=== PATIENT | male | born 1935 | race Caucasian/White ===

== ENCOUNTER 2018-09-01 21:28 | Inpatient (IN) | payer MEDICARE ==
--- NOTE | 2018-09-01 21:47 | ED Physician Chart ---
ED Chief Complaint/HPI - Patient Information Date Seen:: 09/01/18 Time Seen:: 21:46 Chief Complaint:: Dehydration History of Present Illness:: 83 yo male was brought from SNF to ER for evaluation of dehydration, failure to thrive and refusal of medication for 2 days. His labs on 08/24/18 showed WBC 8.9 , BUN 13, Cr 1.3. Pt was put on 5150 for gravely disabled on 08/29/18. On arrival at ER, pt refused evaluation and treatment. He was screaming, yelling and attacking nursing staff. Allergies:: Allergies Allergy/AdvReac Type Severity Reaction Status Date / Time No Known Allergies Allergy Verified 09/01/18 21:38 ED Review of Systems - Review of Systems General/Constitutional: Fever, Chills, Weakness, Other (Agitation) Skin: No rash Head: No headache Eyes: No pain ENT: No earache Neck: No neck pain Cardio Vascular: No chest pain Pulmonary: No SOB GI: No nausea, No vomiting Musculoskeletal: No bone or joint pain Psychiatric: Prior psych history Neurological: No focal symptoms ED Past Medical History - Past Medical History Past Medical History: HTN, DM, CAD, Dyslipidemia (Hyperlipidemia), Arthritis, Other (BPH) Social History: Non Smoker, No Alcohol, No Drug Use Psychiatricy History: Other (Psychosis, paranoid) Family Medical History - Family Member Mother History Unknown: Yes ED Physical Exam - Physical Examination General/Constitutional: Awake, Alert Head: Atraumatic Eyes: PERRL Skin: No skin lesions ENMT: Nasal exam nl Neck: No nuchal rigidity Respiratory: No Wheeze/Rhonchi/Rales Cardio Vascular: RRR, No murmur, gallop, rubs, NL S1 S2 GI: No tenderness/rebounding/guarding Extremities: normal strength in all extremities Neuro/Psych: No focal deficits ED Labs/Radiology/EKG Results - Lab Results Results: Laboratory Last Values WBC 10.0 Th/cmm (4.8-10.8) 09/01/18 22:45 RBC 5.54 Mil/cmm (3.80-5.80) 09/01/18 22:45 Hgb 15.9 gm/dL (12-16) 09/01/18 22:45 Hct 48.0 % (41.0-60) 09/01/18 22:45 MCV 86.6 fl (80-99) 09/01/18 22:45 MCH 28.7 pg (27.0-31.0) 09/01/18 22:45 MCHC Differential 33.1 pg (28.0-36.0) 09/01/18 22:45 RDW 16.8 % (11.5-20.0) 09/01/18 22:45 Plt Count 207 Th/cmm (150-400) 09/01/18 22:45 MPV 11.0 fl 09/01/18 22:45 Add Manual Diff 09/01/18 22:45 Neutrophils % 61.2 % (40.0-80.0) 09/01/18 22:45 Lymphocytes % 27.6 % (20.0-50.0) 09/01/18 22:45 Monocytes % 9.7 % (2.0-10.0) 09/01/18 22:45 Eosinophils % 1.0 % (0.0-5.0) 09/01/18 22:45 Basophils % 0.5 % (0.0-2.0) 09/01/18 22:45 PT 10.6 SECONDS (9.5-11.5) 09/01/18 22:45 INR 1.02 (0.5-1.4) 09/01/18 22:45 PTT (Actin FS) 31.9 SECONDS (26.0-38.0) 09/01/18 22:45 Sodium 135 mEq/L (136-145) L 09/02/18 06:00 Potassium 3.0 mEq/L (3.5-5.1) L 09/02/18 06:00 Chloride 102 mEq/L (98-107) 09/02/18 06:00 Carbon Dioxide 16.9 mEq/L (21.0-31.0) L 09/02/18 06:00 Anion Gap 19.1 (7.0-16.0) H 09/02/18 06:00 BUN 12 mg/dL (7-25) 09/02/18 06:00 Creatinine 1.0 mg/dL (0.7-1.3) 09/02/18 06:00 Est GFR ( Amer) TNP 09/02/18 06:00 Est GFR (Non-Af Amer) TNP 09/02/18 06:00 BUN/Creatinine Ratio 12.0 09/02/18 06:00 Glucose 128 mg/dL (70-105) H 09/02/18 06:00 POC Glucose 108 MG/DL (70 - 105) H 09/02/18 06:54 Calcium 9.1 mg/dL (8.6-10.3) 09/02/18 06:00 Magnesium 1.8 mg/dL (1.9-2.7) L 09/02/18 06:00 Total Bilirubin 0.7 mg/dL (0.3-1.0) 09/01/18 22:45 AST 12 U/L (13-39) L 09/01/18 22:45 ALT 25 U/L (7-52) 09/01/18 22:45 Alkaline Phosphatase 75 U/L (34-104) 09/01/18 22:45 Ammonia 35 umol/L (16-53) 09/02/18 06:00 Creatine Kinase 27 U/L (30-223) L 09/01/18 22:45 Troponin I 0.02 ng/mL (0.01-0.05) 09/01/18 22:45 B-Natriuretic Peptide 43.8 pg/mL (5.0-100.0) 09/01/18 22:45 Total Protein 7.2 gm/dL (6.0-8.3) 09/01/18 22:45 Albumin 3.4 gm/dL (4.2-5.5) L 09/01/18 22:45 Globulin 3.8 gm/dL 09/01/18 22:45 Albumin/Globulin Ratio 0.9 (1.0-1.8) L 09/01/18 22:45 Lipase 21 U/L (11-82) 09/01/18 22:45 TSH 4.40 uIU/ml (0.34-5.60) 09/02/18 06:00 - Radiology Results Results: CXR: no acute abnormalities - EKG Interpretations EKG Time:: 23:01 Rate & Rhythm: 66 bpm, sinus rhythm Thorofare: Normal axis Intervals: Short ME interval Comments:: Borderline EKG ED Assessment - Assessment General Assessment: Hypokalemia Mild hyponatremia Dehydration Hypertension DM II Psychosis Assessment/Comments:: Haldol 5 mg IM Ativan 1 mg IM Benadryl 50 mg IM CBC, CMP, Troponin, BNP, UA CXR, EKG NS 1L IV bolus D5 1/2 NS plus KCl 20 mEq IV ED Septic Shock - . Is Septic Shock (SBP<90, OR Lactate>4 mmol\L) present?: No ED Reassessment (Disposition) - Reassessment Reassessment Condition:: Improved - Patient Disposition Discharge/Transfer:: Acute Care w/in this hosp Admitting Medical Physician:: Juan David Goyal
[2018-09-01] MEDS ORDERED: Haloperidol Lactate 5 mg/mL 1mL Vial IM STA (21:48)
[2018-09-01] MEDS ORDERED: Haloperidol Lactate 5 mg/mL 1mL Vial ONE (21:53)
[2018-09-01] MEDS ORDERED: Sodium Chloride 0.9% 1,000 ML IV ONE (22:31)
[2018-09-01 23:14] LABS: INR 1.02 (0.5-1.4)
[2018-09-01 23:17] LABS: ALB/GLOB RATIO 0.9 (1.0-1.8); ALBUMIN 3.4 gm/dL (4.2-5.5); ALKALINE PHOSPHATASE 75 U/L (34-104); ANION GAP 23.9 (7.0-16.0); BILIRUBIN,TOTAL 0.7 mg/dL (0.3-1.0); BUN - UREA NITROGEN 14 mg/dL (7-25); CARBON DIOXIDE 15.9 mEq/L (21.0-31.0); CHLORIDE 97 mEq/L (98-107); CREATININE - SERUM 1.2 mg/dL (0.7-1.3); CREATININE KINASE 27 U/L (30-223); GLUCOSE 137 mg/dL (70-105); LIPASE 21 U/L (11-82); SGOT 12 U/L (13-39); SGPT/ALT 25 U/L (7-52); SODIUM SERUM 134 mEq/L (136-145); TOTAL PROTEIN,SERUM 7.2 gm/dL (6.0-8.3)
[2018-09-01 23:30] LABS: POTASSIUM SERUM 2.8 mEq/L (3.5-5.1)
[2018-09-01] MEDS ORDERED: KCL 20mEq/100mL Premix 20 MEQ/100 ML PIGGYBACK IV ONE (23:33)
[2018-09-01] MEDS ORDERED: 0.9% NS w/20 mEq KCL 1,000 ML IV ONE (23:34)
[2018-09-01] MEDS ORDERED: 0.45% NS w/20 mEq KCl 1,000 ML IV ONE ×2 (23:38→23:39)
[2018-09-01] MEDS ORDERED: Albuterol Nebulizer 2.5mg/3mL HHN PRN (23:44)
[2018-09-01] MEDS ORDERED: Maalox 30 mL Cup PO PRN (23:44)
[2018-09-01] MEDS ORDERED: guaiFENesin 200 MG/10 ML UDC PO PRN (23:44)
[2018-09-01] MEDS ORDERED: Ipratropium Neb 0.5 mg/2.5 mL UD HHN PRN (23:44)
[2018-09-01] MEDS ORDERED: Dextrose 50% 50 mL Abboject IVP PRN (23:46)
[2018-09-01] MEDS ORDERED: GLUCAGON HCl 1 MG KIT IM PRN (23:46)
[2018-09-02 01:08] VITALS: BP 164/83
[2018-09-02 01:54] LABS: HEMOGLOBIN 15.9 gm/dL (12-16); MEAN CELL VOLUME 86.6 fl (80-99); MEAN CORPUSCULAR HEMOGLOBIN 28.7 pg (27.0-31.0); MEAN CORPUSCULAR HGB CONC 33.1 pg (28.0-36.0); RED BLOOD COUNT 5.54 Mil/cmm (3.80-5.80)
[2018-09-02 01:55] LABS: % BASOPHILS 0.5 % (0.0-2.0); % LYMPHOCYTES 27.6 % (20.0-50.0); % MONOCYTES 9.7 % (2.0-10.0); % NEUTROPHILS 61.2 % (40.0-80.0); BASOPHILE ABSOLUTE 0.1 Th/cumm (0-0.2); EOSINOPHILE ABSOLUTE 0.1 Th/cmm (0.1-0.4); LYMPHOCYTE ABSOLUTE 2.8 Th/cmm (1.5-3.0); NEUTROPHILE ABSOLUTE 6.2 Th/cmm (1.8-8.0); PLATELET COUNT 207 Th/cmm (150-400); RED CELL DISTRIBUTION WIDTH 16.8 % (11.5-20.0)
[2018-09-02 06:38] LABS: ANION GAP 19.1 (7.0-16.0); BUN - UREA NITROGEN 12 mg/dL (7-25); CALCIUM SERUM 9.1 mg/dL (8.6-10.3); CARBON DIOXIDE 16.9 mEq/L (21.0-31.0); CHLORIDE 102 mEq/L (98-107); GLUCOSE 128 mg/dL (70-105); MAGNESIUM 1.8 mg/dL (1.9-2.7); SODIUM SERUM 135 mEq/L (136-145)
[2018-09-02] MEDS: INSULIN LISPRO SLIDING SCALE 100 UNITS/ML UNIT SUBQ SCH ×4 (06:57→20:40)
[2018-09-02] MEDS: D5-0.9%NS 1,000 ML IV SCH ×2 (08:33→16:54)
--- NOTE | 2018-09-02 08:53 | Diagnostic Imaging Report ---
Portable chest x-ray History: Shortness of breath Allowing for portable technique the heart size is normal. No focal pulmonary parenchymal processes. No hilar or mediastinal abnormalities. Impression: No acute abnormalities.
[2018-09-02] MEDS: Aspirin 81mg Chewable Tab PO SCH (10:05)
[2018-09-02 10:12] LABS: WHITE BLOOD COUNT 8.5 Th/cmm (4.8-10.8)
[2018-09-02 10:13] LABS: % BASOPHILS 1.2 % (0.0-2.0); % EOSINOPHILS 1.7 % (0.0-5.0); % MONOCYTES 11.4 % (2.0-10.0); % NEUTROPHILS 52.7 % (40.0-80.0); HEMATOCRIT 43.6 % (41.0-60); HEMOGLOBIN 14.3 gm/dL (12-16); LYMPHOCYTE ABSOLUTE 2.8 Th/cmm (1.5-3.0); MEAN CELL VOLUME 86.9 fl (80-99); MEAN CORPUSCULAR HEMOGLOBIN 28.4 pg (27.0-31.0); MEAN CORPUSCULAR HGB CONC 32.7 pg (28.0-36.0); NEUTROPHILE ABSOLUTE 4.5 Th/cmm (1.8-8.0); PLATELET COUNT 167 Th/cmm (150-400); RED BLOOD COUNT 5.02 Mil/cmm (3.80-5.80); RED CELL DISTRIBUTION WIDTH 16.7 % (11.5-20.0)
[2018-09-02 10:14] LABS: BASOPHILE ABSOLUTE 0.1 Th/cumm (0-0.2); EOSINOPHILE ABSOLUTE 0.1 Th/cmm (0.1-0.4)
[2018-09-02] MEDS ORDERED: Mag Sulfate 2gm/50mL Premix 2 GM/50 ML BAG IV ONE (12:41)
--- NOTE | 2018-09-02 13:22 | History & Physical ---
ADMIT DATE: 09/02/2018 CHIEF COMPLAINT: Severe dehydration. HISTORY OF PRESENT ILLNESS: This is an 83-year-old male with history of diabetes, hypertension, hypercholesterolemia, BPH, CAD, cardiac arrhythmia, admitted from [facility] secondary to not eating or drinking. The patient to be evaluated. The patient was sent to the ER for evaluation, noted to be confused and requiring admission. PAST MEDICAL HISTORY: As mentioned in the history present illness. PAST SURGICAL HISTORY: Unable to obtain from the patient. ALLERGIES: No known drug allergies. MEDICATIONS: The patient was on metformin, Lantus, Norvasc, aspirin, donepezil, olanzapine, ____. FAMILY HISTORY: Noncontributory. SOCIAL HISTORY: The patient is a skilled nursing patient requiring 24-hour total care. REVIEW OF SYSTEMS: This is limited secondary to pain, comatose state. We will try to obtain more detailed review of systems at a later date by talking to family members. There is a spouse and they do not currently have the name, I will try to get that. We will get information from her. I have also got the some information from nursing staff as well as from Dr. Bryan who called to ____ the patient. PHYSICAL EXAMINATION: VITAL SIGNS: Blood pressure 118/41, respiration 18, pulse 91, temperature 98.0. GENERAL: Elderly male, appears chronically ill. NECK: Supple. No mass. LUNGS: Equal breath sounds, few rhonchi. HEART: Regular rate and rhythm with systolic ejection murmur. ABDOMEN: Soft, globular. EXTREMITIES: Positive excoriations, atrophy. Excoriations on the sacral area. NEUROLOGIC: Limited. LABORATORY DATA: WBC 8.5, hemoglobin 14, platelets 167. Sodium 130, potassium 2.8, BUN 14. Creatinine 1.2, previously was 1.3. Blood sugar 134 and 128. Magnesium 1.8, albumin was 3.4. ASSESSMENT: Failure to thrive, dehydration, diabetes, hypertension, BPH, CAD, cardiac arrhythmia, hypercholesterolemia, moderate protein calorie malnutrition, poor p.o. intake. Psychiatry is following the patient. PLAN: We will continue the patient on gentle IV hydration. Monitor for any signs and symptoms of fluid overload. We will titrate the patient on diabetic medications. Hold Lantus. Continue with insulin sliding scale. We will perform a head CT ____ the patient. We will try to get information from the spouse as well, supposedly she is coming to have a conversation. Discussed with nursing staff as well. JOB# [id number]
[2018-09-02] MEDS ORDERED: Potassium Chloride 40 MEQ, Lidocaine 1% 20mL Vial 25 MG in Sodium Chloride 0.9% 250 ML IV ONE (13:30)
--- NOTE | 2018-09-02 13:41 | Diagnostic Imaging Report ---
CT scan of the brain without intravenous contrast HISTORY: Stroke, CVA Total DLP equals 646 CTDI equals 36.7 Axial sections were obtained from the base of the skull to the vertex. There is prominence/enlargement of the ventricular system size. Associated enlargement of cerebral sulci and subarachnoid cisterns. Findings are consistent with changes of generalized cerebral atrophy. No acute parenchymal abnormalities. No acute cerebral hemorrhage. Hypodensity is seen within the supratentorial white matter regions without mass effect. The findings may be associated with chronic small vessel ischemic disease. A somewhat more discrete 1.0 cm focus is noted in the right parietal white matter region. No mass effect. 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 No extra-axial masses or abnormal fluid collections. IMPRESSION: 1. No acute abnormalities 2. Cerebral atrophy 3. Supratentorial white matter changes that may reflect chronic small vessel ischemic disease 4. 1.0 cm focus within the right parietal white matter region which appears chronic and consistent with an old infarct.
[2018-09-03] MEDS: D5-0.9%NS 1,000 ML IV SCH ×2 (03:18→17:54)
[2018-09-03 05:51] LABS: % EOSINOPHILS 3.8 % (0.0-5.0); % LYMPHOCYTES 22.5 % (20.0-50.0); % MONOCYTES 3.5 % (2.0-10.0); % NEUTROPHILS 69.2 % (40.0-80.0); BASOPHILE ABSOLUTE 0.1 Th/cumm (0-0.2); EOSINOPHILE ABSOLUTE 0.3 Th/cmm (0.1-0.4); HEMATOCRIT 41.7 % (41.0-60); HEMOGLOBIN 13.9 gm/dL (12-16); MEAN CELL VOLUME 85.6 fl (80-99); MEAN CORPUSCULAR HEMOGLOBIN 28.5 pg (27.0-31.0); MEAN CORPUSCULAR HGB CONC 33.4 pg (28.0-36.0); MONOCYTE ABSOLUTE 0.3 Th/cmm (0.3-1.0); NEUTROPHILE ABSOLUTE 6.2 Th/cmm (1.8-8.0); PLATELET COUNT 176 Th/cmm (150-400); RED BLOOD COUNT 4.87 Mil/cmm (3.80-5.80); RED CELL DISTRIBUTION WIDTH 15.7 % (11.5-20.0); WHITE BLOOD COUNT 8.9 Th/cmm (4.8-10.8)
[2018-09-03 06:18] LABS: BUN - UREA NITROGEN 7 mg/dL (7-25); CARBON DIOXIDE 20.9 mEq/L (21.0-31.0); CHLORIDE 103 mEq/L (98-107); GLUCOSE 130 mg/dL (70-105); MAGNESIUM 2.1 mg/dL (1.9-2.7); SODIUM SERUM 135 mEq/L (136-145)
[2018-09-03 06:21] LABS: POTASSIUM SERUM 2.9 mEq/L (3.5-5.1)
[2018-09-03] MEDS: INSULIN LISPRO SLIDING SCALE 100 UNITS/ML UNIT SUBQ SCH ×4 (06:34→20:38)
[2018-09-03] MEDS ORDERED: Potassium Chloride 40 MEQ, Lidocaine 1% 20mL Vial 25 MG in Sodium Chloride 0.9% 250 ML IV ONE (09:44)
[2018-09-03] MEDS: Aspirin 81mg Chewable Tab PO SCH (10:18)
--- NOTE | 2018-09-03 12:27 | Internal Medicine Prog Note ---
Internal Medicine Subjective - Subjective Patient seen and examined:: with staff, chart reviewed Patient is:: awake, non-verbal, non-interactive, in bed, agitated, confused Patient Complaints of:: congestion, unable to sleep Per staff patient has:: no adverse event, poor appetite, poor oral intake, agitated, combative Internal Medicine Objective - Results Result Diagrams: 09/03/18 05:35 09/03/18 05:35 Recent Labs: Laboratory Last Values WBC 8.9 Th/cmm (4.8-10.8) 09/03/18 05:35 RBC 4.87 Mil/cmm (3.80-5.80) 09/03/18 05:35 Hgb 13.9 gm/dL (12-16) 09/03/18 05:35 Hct 41.7 % (41.0-60) 09/03/18 05:35 MCV 85.6 fl (80-99) 09/03/18 05:35 MCH 28.5 pg (27.0-31.0) 09/03/18 05:35 MCHC Differential 33.4 pg (28.0-36.0) 09/03/18 05:35 RDW 15.7 % (11.5-20.0) 09/03/18 05:35 Plt Count 176 Th/cmm (150-400) 09/03/18 05:35 MPV 10.3 fl 09/03/18 05:35 Add Manual Diff 09/01/18 22:45 Neutrophils % 69.2 % (40.0-80.0) 09/03/18 05:35 Lymphocytes % 22.5 % (20.0-50.0) 09/03/18 05:35 Monocytes % 3.5 % (2.0-10.0) 09/03/18 05:35 Eosinophils % 3.8 % (0.0-5.0) 09/03/18 05:35 Basophils % 1.0 % (0.0-2.0) 09/03/18 05:35 PT 10.6 SECONDS (9.5-11.5) 09/01/18 22:45 INR 1.02 (0.5-1.4) 09/01/18 22:45 PTT (Actin FS) 31.9 SECONDS (26.0-38.0) 09/01/18 22:45 Sodium 135 mEq/L (136-145) L 09/03/18 05:35 Potassium 2.9 mEq/L (3.5-5.1) L* 09/03/18 05:35 Chloride 103 mEq/L (98-107) 09/03/18 05:35 Carbon Dioxide 20.9 mEq/L (21.0-31.0) L 09/03/18 05:35 Anion Gap 14.0 (7.0-16.0) 09/03/18 05:35 BUN 7 mg/dL (7-25) 09/03/18 05:35 Creatinine 1.0 mg/dL (0.7-1.3) 09/03/18 05:35 Est GFR ( Amer) TNP 09/03/18 05:35 Est GFR (Non-Af Amer) TNP 09/03/18 05:35 BUN/Creatinine Ratio 7.0 09/03/18 05:35 Glucose 130 mg/dL (70-105) H 09/03/18 05:35 POC Glucose 127 MG/DL (70 - 105) H 09/03/18 05:56 Calcium 9.0 mg/dL (8.6-10.3) 09/03/18 05:35 Magnesium 2.1 mg/dL (1.9-2.7) 09/03/18 05:35 Total Bilirubin 0.7 mg/dL (0.3-1.0) 09/01/18 22:45 AST 12 U/L (13-39) L 09/01/18 22:45 ALT 25 U/L (7-52) 09/01/18 22:45 Alkaline Phosphatase 75 U/L (34-104) 09/01/18 22:45 Ammonia 35 umol/L (16-53) 09/02/18 06:00 Creatine Kinase 27 U/L (30-223) L 09/01/18 22:45 Troponin I 0.02 ng/mL (0.01-0.05) 09/01/18 22:45 B-Natriuretic Peptide 71.7 pg/mL (5.0-100.0) 09/03/18 05:35 Total Protein 7.2 gm/dL (6.0-8.3) 09/01/18 22:45 Albumin 3.4 gm/dL (4.2-5.5) L 09/01/18 22:45 Globulin 3.8 gm/dL 09/01/18 22:45 Albumin/Globulin Ratio 0.9 (1.0-1.8) L 09/01/18 22:45 Lipase 21 U/L (11-82) 09/01/18 22:45 TSH 4.40 uIU/ml (0.34-5.60) 09/02/18 06:00 - Physical Exam Vitals and I&O: Vital Signs Temp 97.8 F 09/03/18 08:00 Pulse 78 09/03/18 11:42 Resp 18 09/03/18 11:42 BP 131/48 09/03/18 08:00 Pulse Ox 98 09/03/18 11:42 Intake & Output 09/02/18 09/03/18 09/03/18 18:59 06:59 18:59 Intake Total 668 240 Balance 668 240 Weight (lbs) 72.575 kg 72.575 kg Intake: Intake, IV Amount 668 D5-0.9%Ns 1,000 ml @ 80 668 mls/hr IV .[id number] [facility] Rx #:[id number] Oral 240 Other: # Voids 2 3 # Bowel Movements 0 Weight Source Bedscale Bedscale Active Medications: Current Medications Acetaminophen (Tylenol) 650 mg PO Q4H PRN PRN Reason: Pain Or Fever above 101 Stop: 10/31/18 23:43 Al Hydrox/Mg Hydrox/Simethicone (Maalox) 30 ml PO Q6H PRN PRN Reason: Dyspepsia Stop: 10/31/18 23:43 Albuterol Sulfate (Albuterol 2.5mg/3ml Neb Ud) 2.5 mg HHN Q2HRT PRN PRN Reason: Shortness of Breath or Wheeze Stop: 10/31/18 23:43 Amlodipine Besylate (Norvasc) 10 mg PO DAILY [facility] Stop: 11/01/18 08:59 Last Admin: 09/03/18 10:17 Dose: Not Given Aspirin (Aspirin Chewable) 81 mg PO DAILY [facility] Stop: 11/01/18 08:59 Last Admin: 09/03/18 10:18 Dose: Not Given Dextrose (D50w) 50 ml IVP PRN PRN PRN Reason: Blood Glucose less than 70 Stop: 10/31/18 23:45 Dextrose (Glutose 40%) 18.75 gm PO PRN PRN PRN Reason: Blood Glucose less than 70 Stop: 10/31/18 23:45 Donepezil HCl (Aricept) 5 mg PO HS [facility] Stop: 11/01/18 20:59 Last Admin: 09/02/18 20:40 Dose: Not Given Glucagon (Glucagen) 1 mg IM PRN PRN PRN Reason: Blood Glucose less than 70 Stop: 10/31/18 23:45 Guaifenesin (Robitussin) 200 mg PO Q4HR PRN PRN Reason: Cough or Congestion Stop: 10/31/18 23:43 Dextrose/Sodium Chloride (D5-0.9%Ns) 1,000 mls @ 80 mls/hr IV .[id number] [facility] Stop: 11/01/18 01:59 Last Admin: 09/02/18 16:54 Dose: 80 mls/hr Potassium Chloride 40 meq/Lidocaine HCl 25 mg/ Sodium Chloride 272.5 mls @ 68 mls/hr IV X1 ONE Stop: 09/03/18 13:44 Last Admin: 09/03/18 11:08 Dose: 68 mls/hr Insulin Human Lispro (Humalog Insulin Sliding Scale) 0 units SUBQ ACHS [facility]; Protocol Stop: 11/01/18 07:29 Last Admin: 09/03/18 06:34 Dose: Not Given Ipratropium [place] (Atrovent Neb 0.5mg/2.5ml) 0.5 mg HHN Q2HRT PRN PRN Reason: Shortness of Breath or Wheeze Stop: 10/31/18 23:43 Lorazepam (Ativan) 0.5 mg PO Q8HR PRN; Protocol PRN Reason: Agitation Stop: 10/31/18 23:46 Megestrol Acetate (Megace) 400 mg PO BID [facility]; Protocol Stop: 11/01/18 16:59 Last Admin: 09/03/18 10:18 Dose: Not Given Mupirocin (Bactroban Oint) 1 appl NS BID [facility] Stop: 09/08/18 09:01 Nitroglycerin (Nitrostat) 0.4 mg SL Q5MIN PRN PRN Reason: Chest Pain Stop: 10/31/18 23:43 Olanzapine (Zyprexa) 5 mg PO HS [facility]; Protocol Stop: 11/01/18 20:59 Last Admin: 09/02/18 20:41 Dose: Not Given Olanzapine (Zyprexa) 2.5 mg PO QAM [facility]; Protocol Stop: 11/01/18 08:59 Last Admin: 09/03/18 10:18 Dose: Not Given Ondansetron HCl (Zofran) 4 mg IV Q8H PRN PRN Reason: Nausea / Vomiting Stop: 10/31/18 23:43 Propranolol HCl (Inderal) 10 mg PO BID [facility] Stop: 11/01/18 08:59 Last Admin: 09/03/18 10:18 Dose: Not Given Simvastatin (Zocor) 20 mg PO DAILY [facility]; Protocol Stop: 11/01/18 08:59 Last Admin: 09/03/18 10:18 Dose: Not Given Tamsulosin HCl (Flomax) 0.8 mg PO DAILY [facility] Stop: 11/01/18 08:59 Last Admin: 09/03/18 10:18 Dose: Not Given General: demented, thin HEENT: NC/AT, PERRLA, EOMI Neck: Supple, No JVD Lungs: congested, rales Cardiovascular: RRR, Normal S1, Normal S2, with murmur Abdomen: soft, thin, globular, positive bowel sound Extremities: excoriation, contracture Neurological: no change, disorganized Internal Medicine Assmt/Plan - Assessment Assessment: ASSESSMENT: Failure to thrive, dehydration, diabetes, hypertension, BPH, CAD, cardiac arrhythmia, hypercholesterolemia, moderate protein calorie malnutrition, poor p.o. intake. chronic stroke - Plan Plan: PLAN: We will continue the patient on gentle IV hydration. Monitor for any signs and symptoms of fluid overload. We will titrate the patient on diabetic medications. Hold Lantus. Continue with insulin sliding scale. We will perform a head CT ___to assess leather skinner status of_ the patient. We will try to get information from the spouse as well, supposedly she is coming to have a conversation. Discussed with nursing staff as well.
--- NOTE | 2018-09-03 20:42 | Psychiatric Evaluation ---
DATE OF SERVICE: 09/03/2018 PSYCHIATRIC EVALUATION REQUESTING PHYSICIAN: Dr. Goyal. REASON FOR CONSULTATION: Psychosis. HISTORY OF PRESENT ILLNESS: This patient is an 83-year-old male transferred from a Psychiatric Unit. The patient is reported to be a resident of [facility]. The patient has been refusing to eat or drink and has been getting easily agitated. The patient has been admitted over here for this acute psychosis and failure to thrive and Psychiatric consultation is called to address the issue of the psychosis and I tried to interview the patient, the patient is greeting me even though it is the 7 p.m. The patient is stating good morning and the patient is reported to have been refusing to eat or drink. The patient has been getting severely dehydrated. The patient's is reported to be there yesterday and she has been frustrated with the patient and is stating that it may be a good idea for the patient to go on hospice and continue treatment over there. Review of the chart indicated that the patient has been having multiple medical problems, diabetes, hypertension, hypercholesterolemia, BPH, CAD and cardiac arrhythmia and the patient is being followed up by Dr. Goyal at this time. PAST PSYCHIATRIC HISTORY: The patient is reported to have been at [facility] and has been transferred over here for medical stabilization. SOCIAL HISTORY: The patient is reported to be and has been very supportive. The patient has been in [facility] in [place]. MENTAL STATUS EXAMINATION: The patient is an 83-year-old thin built, superficially cooperative. Eye contact is poor. Mood is noted to be irritable. Affect is constricted. Insight and judgment at this time are noted to be very much impaired. The patient is screaming and yelling and is reluctant to comply with any of the medications. The patient has no insight into his illness. Continues to be paranoid. The patient is demented and has not been able to figure it out what time it is. The patient is stating that he does not like the hospital, does not like the food and he wants to be left alone. The patient is not making a reasonable decision as to his care is concerned. 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 PLAN: To use the Haldol in place of the Zyprexa since the patient is not willing to take anything by mouth with the hope that this can be given IM or IV and the patient is going to be closely monitored. Once stabilized, the patient is going to be discharged back to the senior living facility. Thank you, Dr. Goyal for allowing me to participate in the care of the patient. JOB# [id number]
--- NOTE | 2018-09-04 00:18 | Consultation ---
DATE OF CONSULTATION: 09/03/2018 HISTORY OF PRESENT ILLNESS: The patient was seen, chart reviewed. was the president. The patient is an 83-year-old male who was hospitalized at [facility] for increased paranoia, agitation, and refusing to eat. The patient transferred to Med/Surg for dehydration and the patient is receiving treatment at this time. The patient is still anxious, irritable, refusing medications off and on. The patient, however, appears to be calm right now with his . PAST PSYCHIATRIC HISTORY: Prior hospitalization, history of dementia, and psychosis, and depression. PAST MEDICAL HISTORY: Refer to Dr. Goyal and Walter. CURRENT MEDICATION: List reviewed. PSYCHOSOCIAL HISTORY: The patient resides in a alf and requires complete care. The patient's is supportive. MENTAL STATUS EXAMINATION: Speech fluent, short sentences and relevant to topic. Affect dysphoric, anxious, guarded. The patient is oriented to person and be in some kind of facility, not oriented to time. ASSESSMENT: Psychosis, not otherwise specified, rule out major depressive disorder with psychosis. PLAN: At this time, I would recommend continuation of Zyprexa 2.5 mg p.o. q.a.m. and 5 mg p.o. at bedtime. Monitor p.o. intake. Once the patient is medically stable, the patient will need psychiatric hospitalization. Thank you for the consultation. [facility]# [id number]
[2018-09-04] MEDS: INSULIN LISPRO SLIDING SCALE 100 UNITS/ML UNIT SUBQ SCH ×4 (06:33→21:25)
[2018-09-04] MEDS: D5-0.9%NS 1,000 ML IV SCH ×2 (08:06→21:17)
[2018-09-04] MEDS: Aspirin 81mg Chewable Tab PO SCH (10:12)
--- NOTE | 2018-09-04 12:12 | Internal Medicine Prog Note ---
Internal Medicine Subjective - Subjective Patient seen and examined:: with staff, chart reviewed Patient is:: awake, non-verbal, non-interactive, in bed, agitated, confused Patient Complaints of:: congestion, unable to sleep Per staff patient has:: no adverse event, poor appetite, poor oral intake, agitated, combative Internal Medicine Objective - Results Result Diagrams: 09/03/18 05:35 09/03/18 05:35 Recent Labs: Laboratory Last Values WBC 8.9 Th/cmm (4.8-10.8) 09/03/18 05:35 RBC 4.87 Mil/cmm (3.80-5.80) 09/03/18 05:35 Hgb 13.9 gm/dL (12-16) 09/03/18 05:35 Hct 41.7 % (41.0-60) 09/03/18 05:35 MCV 85.6 fl (80-99) 09/03/18 05:35 MCH 28.5 pg (27.0-31.0) 09/03/18 05:35 MCHC Differential 33.4 pg (28.0-36.0) 09/03/18 05:35 RDW 15.7 % (11.5-20.0) 09/03/18 05:35 Plt Count 176 Th/cmm (150-400) 09/03/18 05:35 MPV 10.3 fl 09/03/18 05:35 Add Manual Diff 09/01/18 22:45 Neutrophils % 69.2 % (40.0-80.0) 09/03/18 05:35 Lymphocytes % 22.5 % (20.0-50.0) 09/03/18 05:35 Monocytes % 3.5 % (2.0-10.0) 09/03/18 05:35 Eosinophils % 3.8 % (0.0-5.0) 09/03/18 05:35 Basophils % 1.0 % (0.0-2.0) 09/03/18 05:35 PT 10.6 SECONDS (9.5-11.5) 09/01/18 22:45 INR 1.02 (0.5-1.4) 09/01/18 22:45 PTT (Actin FS) 31.9 SECONDS (26.0-38.0) 09/01/18 22:45 Sodium 135 mEq/L (136-145) L 09/03/18 05:35 Potassium 2.9 mEq/L (3.5-5.1) L* 09/03/18 05:35 Chloride 103 mEq/L (98-107) 09/03/18 05:35 Carbon Dioxide 20.9 mEq/L (21.0-31.0) L 09/03/18 05:35 Anion Gap 14.0 (7.0-16.0) 09/03/18 05:35 BUN 7 mg/dL (7-25) 09/03/18 05:35 Creatinine 1.0 mg/dL (0.7-1.3) 09/03/18 05:35 Est GFR ( Amer) TNP 09/03/18 05:35 Est GFR (Non-Af Amer) TNP 09/03/18 05:35 BUN/Creatinine Ratio 7.0 09/03/18 05:35 Glucose 130 mg/dL (70-105) H 09/03/18 05:35 POC Glucose 153 MG/DL (70 - 105) H 09/03/18 20:21 Calcium 9.0 mg/dL (8.6-10.3) 09/03/18 05:35 Magnesium 2.1 mg/dL (1.9-2.7) 09/03/18 05:35 Total Bilirubin 0.7 mg/dL (0.3-1.0) 09/01/18 22:45 AST 12 U/L (13-39) L 09/01/18 22:45 ALT 25 U/L (7-52) 09/01/18 22:45 Alkaline Phosphatase 75 U/L (34-104) 09/01/18 22:45 Ammonia 35 umol/L (16-53) 09/02/18 06:00 Creatine Kinase 27 U/L (30-223) L 09/01/18 22:45 Troponin I 0.02 ng/mL (0.01-0.05) 09/01/18 22:45 B-Natriuretic Peptide 71.7 pg/mL (5.0-100.0) 09/03/18 05:35 Total Protein 7.2 gm/dL (6.0-8.3) 09/01/18 22:45 Albumin 3.4 gm/dL (4.2-5.5) L 09/01/18 22:45 Globulin 3.8 gm/dL 09/01/18 22:45 Albumin/Globulin Ratio 0.9 (1.0-1.8) L 09/01/18 22:45 Lipase 21 U/L (11-82) 09/01/18 22:45 TSH 4.40 uIU/ml (0.34-5.60) 09/02/18 06:00 - Physical Exam Vitals and I&O: Vital Signs Temp 98.0 F 09/04/18 08:00 Pulse 79 09/04/18 08:00 Resp 18 09/04/18 08:00 BP 146/56 09/04/18 08:00 Pulse Ox 97 09/04/18 08:00 Intake & Output 09/03/18 09/04/18 09/04/18 18:59 06:59 18:59 Intake Total 600 900 Balance 600 900 Weight (lbs) 74.389 kg 74.389 kg Intake: Intake, IV Amount 800 D5-0.9%Ns 1,000 ml @ 80 800 mls/hr IV .[id number] [facility] Rx #:[id number] Oral 600 100 Other: # Voids 4 # Bowel Movements 1 1 Weight Source Bedscale Bedscale Active Medications: Current Medications Acetaminophen (Tylenol) 650 mg PO Q4H PRN PRN Reason: Pain Or Fever above 101 Stop: 10/31/18 23:43 Al Hydrox/Mg Hydrox/Simethicone (Maalox) 30 ml PO Q6H PRN PRN Reason: Dyspepsia Stop: 10/31/18 23:43 Albuterol Sulfate (Albuterol 2.5mg/3ml Neb Ud) 2.5 mg HHN Q2HRT PRN PRN Reason: Shortness of Breath or Wheeze Stop: 10/31/18 23:43 Amlodipine Besylate (Norvasc) 10 mg PO DAILY [facility] Stop: 11/01/18 08:59 Last Admin: 09/04/18 10:12 Dose: Not Given Aspirin (Aspirin Chewable) 81 mg PO DAILY [facility] Stop: 11/01/18 08:59 Last Admin: 09/04/18 10:12 Dose: Not Given Dextrose (D50w) 50 ml IVP PRN PRN PRN Reason: Blood Glucose less than 70 Stop: 10/31/18 23:45 Dextrose (Glutose 40%) 18.75 gm PO PRN PRN PRN Reason: Blood Glucose less than 70 Stop: 10/31/18 23:45 Donepezil HCl (Aricept) 5 mg PO HS [facility] Stop: 11/01/18 20:59 Last Admin: 09/03/18 20:10 Dose: Not Given Glucagon (Glucagen) 1 mg IM PRN PRN PRN Reason: Blood Glucose less than 70 Stop: 10/31/18 23:45 Guaifenesin (Robitussin) 200 mg PO Q4HR PRN PRN Reason: Cough or Congestion Stop: 10/31/18 23:43 Haloperidol (Haldol) 1 mg PO BID [facility]; Protocol Stop: 11/03/18 08:59 Dextrose/Sodium Chloride (D5-0.9%Ns) 1,000 mls @ 80 mls/hr IV .[id number] [facility] Stop: 11/01/18 01:59 Last Admin: 09/04/18 08:06 Dose: 80 mls/hr Insulin Human Lispro (Humalog Insulin Sliding Scale) 0 units SUBQ ACHS [facility]; Protocol Stop: 11/01/18 07:29 Last Admin: 09/04/18 12:01 Dose: Not Given Ipratropium [place] (Atrovent Neb 0.5mg/2.5ml) 0.5 mg HHN Q2HRT PRN PRN Reason: Shortness of Breath or Wheeze Stop: 10/31/18 23:43 Lorazepam (Ativan) 0.5 mg PO Q8HR PRN; Protocol PRN Reason: Agitation Stop: 10/31/18 23:46 Megestrol Acetate (Megace) 400 mg PO BID [facility]; Protocol Stop: 11/01/18 16:59 Last Admin: 09/04/18 10:13 Dose: Not Given Mupirocin (Bactroban Oint) 1 appl NS BID [facility] Stop: 09/08/18 09:01 Last Admin: 09/04/18 08:21 Dose: 1 appl Nitroglycerin (Nitrostat) 0.4 mg SL Q5MIN PRN PRN Reason: Chest Pain Stop: 10/31/18 23:43 Ondansetron HCl (Zofran) 4 mg IV Q8H PRN PRN Reason: Nausea / Vomiting Stop: 10/31/18 23:43 Propranolol HCl (Inderal) 10 mg PO BID [facility] Stop: 11/01/18 08:59 Last Admin: 09/04/18 10:13 Dose: Not Given Simvastatin (Zocor) 20 mg PO DAILY [facility]; Protocol Stop: 11/01/18 08:59 Last Admin: 09/04/18 10:13 Dose: Not Given Tamsulosin HCl (Flomax) 0.8 mg PO DAILY [facility] Stop: 11/01/18 08:59 Last Admin: 09/04/18 10:13 Dose: Not Given General: demented, thin HEENT: NC/AT, PERRLA, EOMI Neck: Supple, No JVD Lungs: congested, rales Cardiovascular: RRR, Normal S1, Normal S2, with murmur Abdomen: soft, thin, globular, positive bowel sound Extremities: excoriation, contracture Neurological: no change, disorganized Internal Medicine Assmt/Plan - Assessment Assessment: ASSESSMENT: Failure to thrive, dehydration, diabetes, hypertension, BPH, CAD, cardiac arrhythmia, hypercholesterolemia, moderate protein calorie malnutrition, poor p.o. intake. chronic stroke - Plan Plan: PLAN: We will continue the patient on gentle IV hydration. Monitor for any signs and symptoms of fluid overload. We will titrate the patient on diabetic medications. Hold Lantus. Continue with insulin sliding scale. 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 We will try to get information from the spouse as well, supposedly she is coming to have a conversation. Discussed with nursing staff as well.
[2018-09-04 14:10] LABS: FOLIC ACID 7.5 ng/mL (>3.0)
--- NOTE | 2018-09-05 04:54 | Progress Notes ---
DATE: 09/04/2018 SUBJECTIVE: Staff was spoken to. The patient is interviewed. Mood is noted to be irritable. Affect is constricted. Insight and judgment are noted to be still impaired. Impulse control is noted to be limited. Coping skills are noted to be limited. The patient has been having difficult time to cope with the stress. No side effects to the medications are noted. The patient is reluctant to comply with the treatment. ASSESSMENT: The patient is grossly psychotic and impulsive. PLAN: To continue the patient with the supportive therapy. I encouraged the patient to verbalize the concerns rather than to act out. JOB# [id number]
[2018-09-05] MEDS: INSULIN LISPRO SLIDING SCALE 100 UNITS/ML UNIT SUBQ SCH ×4 (07:08→20:12)
[2018-09-05] MEDS: Aspirin 81mg Chewable Tab PO SCH (10:26)
[2018-09-05] MEDS ORDERED: Haloperidol Lactate 5 mg/mL 1mL Vial IM PRN (14:34)
--- NOTE | 2018-09-05 14:43 | Progress Notes ---
DATE: 09/05/2018 PSYCHIATRIC PROGRESS NOTE PROGRESS ON THE UNIT: Staff was spoken to. The patient is interviewed. Mood is noted to be irritable. Affect is constricted. The patient is stating that he wants to be left alone. He tells that he spoke to his and he does not want to live and does not want to take any medications. The patient is refusing to eat or drink. The patient even pulled the IV lines out. The patient has no insight into his illness. Coping skills are noted to be extremely poor. The patient has been given the Haldol for severe agitation, but so far the staff are mentioning that they have not to come across a point where they need to give the medication IM. ASSESSMENT: The patient is still not able to make a reasonable decision as to his care is concerned. PLAN: To continue the patient with supportive therapy. I encouraged him to comply with the treatment. JOB# [id number]
[2018-09-05] MEDS: Haloperidol Lactate Oral sol. 2 mg/mL Udc PO SCH ×2 (14:45→18:39)
--- NOTE | 2018-09-05 17:07 | Internal Medicine Prog Note ---
Internal Medicine Subjective - Subjective Service Date: 09/05/18 (refusing to eat, drink, lab works, and ivf. patients at beside and changed code status to DNR and requesting for hospice eval) Patient is:: awake, non-interactive, in bed, agitated, confused Patient Complaints of:: congestion, unable to sleep Per staff patient has:: no adverse event, poor appetite, poor oral intake, agitated, combative Internal Medicine Objective - Results Result Diagrams: 09/03/18 05:35 09/03/18 05:35 Recent Labs: Laboratory Last Values WBC 8.9 Th/cmm (4.8-10.8) 09/03/18 05:35 RBC 4.87 Mil/cmm (3.80-5.80) 09/03/18 05:35 Hgb 13.9 gm/dL (12-16) 09/03/18 05:35 Hct 41.7 % (41.0-60) 09/03/18 05:35 MCV 85.6 fl (80-99) 09/03/18 05:35 MCH 28.5 pg (27.0-31.0) 09/03/18 05:35 MCHC Differential 33.4 pg (28.0-36.0) 09/03/18 05:35 RDW 15.7 % (11.5-20.0) 09/03/18 05:35 Plt Count 176 Th/cmm (150-400) 09/03/18 05:35 MPV 10.3 fl 09/03/18 05:35 Add Manual Diff 09/01/18 22:45 Neutrophils % 69.2 % (40.0-80.0) 09/03/18 05:35 Lymphocytes % 22.5 % (20.0-50.0) 09/03/18 05:35 Monocytes % 3.5 % (2.0-10.0) 09/03/18 05:35 Eosinophils % 3.8 % (0.0-5.0) 09/03/18 05:35 Basophils % 1.0 % (0.0-2.0) 09/03/18 05:35 PT 10.6 SECONDS (9.5-11.5) 09/01/18 22:45 INR 1.02 (0.5-1.4) 09/01/18 22:45 PTT (Actin FS) 31.9 SECONDS (26.0-38.0) 09/01/18 22:45 Sodium 135 mEq/L (136-145) L 09/03/18 05:35 Potassium 2.9 mEq/L (3.5-5.1) L* 09/03/18 05:35 Chloride 103 mEq/L (98-107) 09/03/18 05:35 Carbon Dioxide 20.9 mEq/L (21.0-31.0) L 09/03/18 05:35 Anion Gap 14.0 (7.0-16.0) 09/03/18 05:35 BUN 7 mg/dL (7-25) 09/03/18 05:35 Creatinine 1.0 mg/dL (0.7-1.3) 09/03/18 05:35 Est GFR ( Amer) TNP 09/03/18 05:35 Est GFR (Non-Af Amer) TNP 09/03/18 05:35 BUN/Creatinine Ratio 7.0 09/03/18 05:35 Glucose 130 mg/dL (70-105) H 09/03/18 05:35 POC Glucose 153 MG/DL (70 - 105) H 09/03/18 20:21 Calcium 9.0 mg/dL (8.6-10.3) 09/03/18 05:35 Magnesium 2.1 mg/dL (1.9-2.7) 09/03/18 05:35 Total Bilirubin 0.7 mg/dL (0.3-1.0) 09/01/18 22:45 AST 12 U/L (13-39) L 09/01/18 22:45 ALT 25 U/L (7-52) 09/01/18 22:45 Alkaline Phosphatase 75 U/L (34-104) 09/01/18 22:45 Ammonia 35 umol/L (16-53) 09/02/18 06:00 Creatine Kinase 27 U/L (30-223) L 09/01/18 22:45 Troponin I 0.02 ng/mL (0.01-0.05) 09/01/18 22:45 B-Natriuretic Peptide 71.7 pg/mL (5.0-100.0) 09/03/18 05:35 Total Protein 7.2 gm/dL (6.0-8.3) 09/01/18 22:45 Albumin 3.4 gm/dL (4.2-5.5) L 09/01/18 22:45 Globulin 3.8 gm/dL 09/01/18 22:45 Albumin/Globulin Ratio 0.9 (1.0-1.8) L 09/01/18 22:45 Lipase 21 U/L (11-82) 09/01/18 22:45 Vitamin B12 709 pg/mL (232-1245) 09/02/18 06:00 Folic Acid 7.5 ng/mL (>3.0) 09/02/18 06:00 TSH 4.40 uIU/ml (0.34-5.60) 09/02/18 06:00 - Physical Exam Vitals and I&O: Vital Signs Temp 97.5 F 09/05/18 15:27 Pulse 78 09/05/18 15:27 Resp 18 09/05/18 15:27 BP 149/75 09/05/18 15:27 Pulse Ox 97 09/05/18 15:27 Intake & Output 09/04/18 09/05/18 09/05/18 18:59 06:59 18:59 Intake Total 100 1000 Balance 100 1000 Weight (lbs) 164 lb 164 lb Intake: Intake, IV Amount 1000 D5-0.9%Ns 1,000 ml @ 80 1000 mls/hr IV .[id number] [facility] Rx #:[id number] Oral 100 Other: # Voids 1 2 # Bowel Movements 0 Weight Source Bedscale Bedscale Active Medications: Current Medications Acetaminophen (Tylenol) 650 mg PO Q4H PRN PRN Reason: Pain Or Fever above 101 Stop: 10/31/18 23:43 Al Hydrox/Mg Hydrox/Simethicone (Maalox) 30 ml PO Q6H PRN PRN Reason: Dyspepsia Stop: 10/31/18 23:43 Albuterol Sulfate (Albuterol 2.5mg/3ml Neb Ud) 2.5 mg HHN Q2HRT PRN PRN Reason: Shortness of Breath or Wheeze Stop: 10/31/18 23:43 Amlodipine Besylate (Norvasc) 10 mg PO DAILY [facility] Stop: 11/01/18 08:59 Last Admin: 06/22/19 10:26 Dose: Not Given Aspirin (Aspirin Chewable) 81 mg PO DAILY [facility] Stop: 11/01/18 08:59 Last Admin: 09/05/18 10:26 Dose: Not Given Dextrose (D50w) 50 ml IVP PRN PRN PRN Reason: Blood Glucose less than 70 Stop: 10/31/18 23:45 Dextrose (Glutose 40%) 18.75 gm PO PRN PRN PRN Reason: Blood Glucose less than 70 Stop: 10/31/18 23:45 Donepezil HCl (Aricept) 5 mg PO HS [facility] Stop: 11/01/18 20:59 Last Admin: 09/04/18 21:25 Dose: Not Given Glucagon (Glucagen) 1 mg IM PRN PRN PRN Reason: Blood Glucose less than 70 Stop: 10/31/18 23:45 Guaifenesin (Robitussin) 200 mg PO Q4HR PRN PRN Reason: Cough or Congestion Stop: 10/31/18 23:43 Haloperidol Lactate (Haldol) 2 mg PO BID [facility]; Protocol Stop: 11/04/18 13:59 Last Admin: 09/05/18 14:45 Dose: Not Given Haloperidol Lactate (Haldol) 1 mg IM BID PRN PRN Reason: Agitation Stop: 11/04/18 14:33 Dextrose/Sodium Chloride (D5-0.9%Ns) 1,000 mls @ 80 mls/hr IV .[id number] [facility] Stop: 11/01/18 01:59 Last Admin: 09/04/18 21:17 Dose: 80 mls/hr Insulin Human Lispro (Humalog Insulin Sliding Scale) 0 units SUBQ ACHS [facility]; Protocol Stop: 11/01/18 07:29 Last Admin: 09/05/18 12:01 Dose: Not Given Ipratropium Hernandez (Atrovent Neb 0.5mg/2.5ml) 0.5 mg HHN Q2HRT PRN PRN Reason: Shortness of Breath or Wheeze Stop: 10/31/18 23:43 Lorazepam (Ativan) 0.5 mg PO Q8HR PRN; Protocol PRN Reason: Agitation Stop: 10/31/18 23:46 Megestrol Acetate (Megace) 400 mg PO BID [facility]; Protocol Stop: 11/01/18 16:59 Last Admin: 09/05/18 10:27 Dose: Not Given Mupirocin (Bactroban Oint) 1 appl NS BID [facility] Stop: 09/08/18 09:01 Last Admin: 09/05/18 10:27 Dose: Not Given Nitroglycerin (Nitrostat) 0.4 mg SL Q5MIN PRN PRN Reason: Chest Pain Stop: 10/31/18 23:43 Ondansetron HCl (Zofran) 4 mg IV Q8H PRN PRN Reason: Nausea / Vomiting Stop: 10/31/18 23:43 Propranolol HCl (Inderal) 10 mg PO BID [facility] Stop: 11/01/18 08:59 Last Admin: 09/05/18 10:27 Dose: Not Given Simvastatin (Zocor) 20 mg PO DAILY [facility]; Protocol Stop: 11/01/18 08:59 Last Admin: 09/05/18 10:27 Dose: Not Given Tamsulosin HCl (Flomax) 0.8 mg PO DAILY [facility] Stop: 11/01/18 08:59 Last Admin: 09/05/18 10:27 Dose: Not Given General: demented, thin HEENT: NC/AT, PERRLA, EOMI Neck: Supple, No JVD Lungs: congested, rales Cardiovascular: RRR, Normal S1, Normal S2, with murmur Abdomen: soft, thin, globular, positive bowel sound Extremities: excoriation, contracture Neurological: no change, disorganized Internal Medicine Assmt/Plan - Assessment Assessment: Failure to thrive, dehydration, diabetes, hypertension, BPH, CAD, cardiac arrhythmia, hypercholesterolemia, moderate protein calorie malnutrition, poor p.o. intake. chronic stroke - Plan Plan: hospice eval as per wishes supportive care continue current plan of care Nutritional Asmnt/Malnutr-PDOC - Dietary Evaluation Malnutrition Findings (Please click <Entered> for more info): Nutritional Asmnt/Malnutrition Start: 09/04/18 15: 11 Text: Status: Active Freq: Protocol: Document 09/04/18 15:11 DIAMOND (Rec: 09/04/18 15:20 DIAMOND [id number]) Nutritional Asmnt/Malnutrition Patient General Information Nutritional Screening Moderate Risk Diagnosis Dehydration, Generalized weakness, Agitation Pertinent Medical Hx/Surgical Hx HTN, DM, CAD, Dyslipidemia ( hyperlipidemia), Arthritis, BPH Subjective Information A 83 years old male was admitted from SNF d/t Dehydration, Generalized weakness and Agitation. Pt is currently on [facility] diet providing 1967 Kcal and 94 g protein. Per chart, Pt refused to eat, medications and accucheck. Per chart, PO intake 0% for all meals on . Current Diet Order/ Nutrition Support [facility] Pertinent Medications Maalox, D50W, Glutose 40%, D5- 0.9%ns, Glucagen, INS-SS Pertinent Labs 09/02 POC Glu 144 09/03 NA 135, POTASS 2.9, Glu 144, POC Glu 127, 135, 153 Nutritional Hx/Data Height 5 ft 8 in Height (Calculated Centimeters) 172.7 Current Weight (lbs) 164 lb Weight (Calculated Kilograms) 74.4 Weight (Calculated Grams) 28517.1 [place] Body Weight 68.4 kg Body Mass Index (BMI) 24.9 Weight Status Approriate GI Symptoms GI Symptoms None Last BM 09/03 Difficult in: None Skin Integrity/Comment: Argelia 11, Skin Intact Current %PO Negligible < 25% Estimated Nutritional Goals BEE in Kcals: Using Current wt Calories/Kcals/Kg 25-30 Kcal/kg Kcals Calculated 1556-4134 Kcal Protein: Using Current wt Protein g/k-1.2g/kg Protein Calculated 74-90 g Fluid: ml 1882-9264 ml (1ml/kcal) Nutritional Problem 2. Problem Problem Altered nutrition related lab result Etiology medical condition Signs/Symptoms: lab result Glucose 144 and POC glucose ranging 127-153 1. Problem Problem Inadequate oral intake Etiology possible low appetite and pt refuse to eat Signs/Symptoms: PO intake 0% for all meals on 09/03 Malnutrition Related to Morbid Obesity Malnutrition related to morbid obesity No Intervention/Recommendation Comments 1. Continue with [facility] diet as ordered. 2. RN to encourage PO intake. 3. Monitor PO intake, wt, labs and skin integrity 4. F/U as HR in 1-2 days Expected Outcomes/Goals Expected Outcomes/Goals 1. Pt to meet at least 75% of nutritional needs via nutrition support with tolerance 2. Wt stability, skin to remain intact, labs to approach WNL.
[2018-09-06] MEDS: INSULIN LISPRO SLIDING SCALE 100 UNITS/ML UNIT SUBQ SCH ×4 (06:36→20:41)
[2018-09-06] MEDS: Aspirin 81mg Chewable Tab PO SCH (10:26)
[2018-09-06] MEDS: Haloperidol Lactate Oral sol. 2 mg/mL Udc PO SCH ×2 (10:26→18:29)
--- NOTE | 2018-09-06 16:03 | Internal Medicine Prog Note ---
Internal Medicine Subjective - Subjective Service Date: 09/06/18 (still refusing labs, medications, and oral diet.) Patient is:: awake, in bed, talking, confused Per staff patient has:: poor appetite, poor oral intake, noncompliant, refusing care, refusing labs Internal Medicine Objective - Results Result Diagrams: 09/03/18 05:35 09/03/18 05:35 Recent Labs: Laboratory Last Values WBC 8.9 Th/cmm (4.8-10.8) 09/03/18 05:35 RBC 4.87 Mil/cmm (3.80-5.80) 09/03/18 05:35 Hgb 13.9 gm/dL (12-16) 09/03/18 05:35 Hct 41.7 % (41.0-60) 09/03/18 05:35 MCV 85.6 fl (80-99) 09/03/18 05:35 MCH 28.5 pg (27.0-31.0) 09/03/18 05:35 MCHC Differential 33.4 pg (28.0-36.0) 09/03/18 05:35 RDW 15.7 % (11.5-20.0) 09/03/18 05:35 Plt Count 176 Th/cmm (150-400) 09/03/18 05:35 MPV 10.3 fl 09/03/18 05:35 Add Manual Diff 09/01/18 22:45 Neutrophils % 69.2 % (40.0-80.0) 09/03/18 05:35 Lymphocytes % 22.5 % (20.0-50.0) 09/03/18 05:35 Monocytes % 3.5 % (2.0-10.0) 09/03/18 05:35 Eosinophils % 3.8 % (0.0-5.0) 09/03/18 05:35 Basophils % 1.0 % (0.0-2.0) 09/03/18 05:35 PT 10.6 SECONDS (9.5-11.5) 09/01/18 22:45 INR 1.02 (0.5-1.4) 09/01/18 22:45 PTT (Actin FS) 31.9 SECONDS (26.0-38.0) 09/01/18 22:45 Sodium 135 mEq/L (136-145) L 09/03/18 05:35 Potassium 2.9 mEq/L (3.5-5.1) L* 09/03/18 05:35 Chloride 103 mEq/L (98-107) 09/03/18 05:35 Carbon Dioxide 20.9 mEq/L (21.0-31.0) L 09/03/18 05:35 Anion Gap 14.0 (7.0-16.0) 09/03/18 05:35 BUN 7 mg/dL (7-25) 09/03/18 05:35 Creatinine 1.0 mg/dL (0.7-1.3) 09/03/18 05:35 Est GFR ( Amer) TNP 09/03/18 05:35 Est GFR (Non-Af Amer) TNP 09/03/18 05:35 BUN/Creatinine Ratio 7.0 09/03/18 05:35 Glucose 130 mg/dL (70-105) H 09/03/18 05:35 POC Glucose 153 MG/DL (70 - 105) H 09/03/18 20:21 Calcium 9.0 mg/dL (8.6-10.3) 09/03/18 05:35 Magnesium 2.1 mg/dL (1.9-2.7) 09/03/18 05:35 Total Bilirubin 0.7 mg/dL (0.3-1.0) 09/01/18 22:45 AST 12 U/L (13-39) L 09/01/18 22:45 ALT 25 U/L (7-52) 09/01/18 22:45 Alkaline Phosphatase 75 U/L (34-104) 09/01/18 22:45 Ammonia 35 umol/L (16-53) 09/02/18 06:00 Creatine Kinase 27 U/L (30-223) L 09/01/18 22:45 Troponin I 0.02 ng/mL (0.01-0.05) 09/01/18 22:45 B-Natriuretic Peptide 71.7 pg/mL (5.0-100.0) 09/03/18 05:35 Total Protein 7.2 gm/dL (6.0-8.3) 09/01/18 22:45 Albumin 3.4 gm/dL (4.2-5.5) L 09/01/18 22:45 Globulin 3.8 gm/dL 09/01/18 22:45 Albumin/Globulin Ratio 0.9 (1.0-1.8) L 09/01/18 22:45 Lipase 21 U/L (11-82) 09/01/18 22:45 Vitamin B12 709 pg/mL (232-1245) 09/02/18 06:00 Folic Acid 7.5 ng/mL (>3.0) 09/02/18 06:00 TSH 4.40 uIU/ml (0.34-5.60) 09/02/18 06:00 - Physical Exam Vitals and I&O: Vital Signs Temp 97.9 F 09/06/18 15:43 Pulse 84 09/06/18 15:43 Resp 18 09/06/18 15:43 BP 120/63 09/06/18 15:43 Pulse Ox 96 09/06/18 15:43 Intake & Output 09/05/18 09/06/18 09/06/18 18:59 06:59 18:59 Intake Total 50 100 Output Total 100 Balance 50 0 Weight (lbs) 164 lb 164 lb Intake: Oral 50 100 Output: Emesis 100 Other: # Voids 2 2 # Bowel Movements 0 Weight Source Bedscale Bedscale Active Medications: Current Medications Acetaminophen (Tylenol) 650 mg PO Q4H PRN PRN Reason: Pain Or Fever above 101 Stop: 10/31/18 23:43 Al Hydrox/Mg Hydrox/Simethicone (Maalox) 30 ml PO Q6H PRN PRN Reason: Dyspepsia Stop: 10/31/18 23:43 Albuterol Sulfate (Albuterol 2.5mg/3ml Neb Ud) 2.5 mg HHN Q2HRT PRN PRN Reason: Shortness of Breath or Wheeze Stop: 10/31/18 23:43 Amlodipine Besylate (Norvasc) 10 mg PO DAILY [facility] Stop: 11/01/18 08:59 Last Admin: 09/06/18 10:26 Dose: Not Given Aspirin (Aspirin Chewable) 81 mg PO DAILY [facility] Stop: 11/01/18 08:59 Last Admin: 09/06/18 10:26 Dose: Not Given Dextrose (D50w) 50 ml IVP PRN PRN PRN Reason: Blood Glucose less than 70 Stop: 10/31/18 23:45 Dextrose (Glutose 40%) 18.75 gm PO PRN PRN PRN Reason: Blood Glucose less than 70 Stop: 10/31/18 23:45 Donepezil HCl (Aricept) 5 mg PO HS [facility] Stop: 11/01/18 20:59 Last Admin: 09/05/18 20:12 Dose: Not Given Glucagon (Glucagen) 1 mg IM PRN PRN PRN Reason: Blood Glucose less than 70 Stop: 10/31/18 23:45 Guaifenesin (Robitussin) 200 mg PO Q4HR PRN PRN Reason: Cough or Congestion Stop: 10/31/18 23:43 Haloperidol Lactate (Haldol) 2 mg PO BID [facility]; Protocol Stop: 11/04/18 13:59 Last Admin: 09/06/18 10:26 Dose: Not Given Haloperidol Lactate (Haldol) 1 mg IM BID PRN PRN Reason: Agitation Stop: 11/04/18 14:33 Dextrose/Sodium Chloride (D5-0.9%Ns) 1,000 mls @ 80 mls/hr IV .[id number] [facility] Stop: 11/01/18 01:59 Last Admin: 09/04/18 21:17 Dose: 80 mls/hr Insulin Human Lispro (Humalog Insulin Sliding Scale) 0 units SUBQ ACHS [facility]; Protocol Stop: 11/01/18 07:29 Last Admin: 09/06/18 12:38 Dose: Not Given Ipratropium [place] (Atrovent Neb 0.5mg/2.5ml) 0.5 mg HHN Q2HRT PRN PRN Reason: Shortness of Breath or Wheeze Stop: 10/31/18 23:43 Lorazepam (Ativan) 0.5 mg PO Q8HR PRN; Protocol PRN Reason: Agitation Stop: 10/31/18 23:46 Megestrol Acetate (Megace) 400 mg PO BID [facility]; Protocol Stop: 11/01/18 16:59 Last Admin: 09/06/18 10:26 Dose: Not Given Mupirocin (Bactroban Oint) 1 appl NS BID [facility] Stop: 09/08/18 09:01 Last Admin: 09/06/18 10:26 Dose: Not Given Nitroglycerin (Nitrostat) 0.4 mg SL Q5MIN PRN PRN Reason: Chest Pain Stop: 10/31/18 23:43 Ondansetron HCl (Zofran) 4 mg IV Q8H PRN PRN Reason: Nausea / Vomiting Stop: 10/31/18 23:43 Propranolol HCl (Inderal) 10 mg PO BID [facility] Stop: 11/01/18 08:59 Last Admin: 09/06/18 10:27 Dose: Not Given Simvastatin (Zocor) 20 mg PO DAILY [facility]; Protocol Stop: 11/01/18 08:59 Last Admin: 09/06/18 10:27 Dose: Not Given Tamsulosin HCl (Flomax) 0.8 mg PO DAILY [facility] Stop: 11/01/18 08:59 Last Admin: 09/06/18 10:27 Dose: Not Given General: demented, thin HEENT: NC/AT, PERRLA, EOMI Neck: Supple, No JVD Lungs: CTAB Cardiovascular: RRR, Normal S1, Normal S2, with murmur Abdomen: soft, thin, globular, positive bowel sound Extremities: excoriation, contracture Neurological: no change, disorganized Internal Medicine Assmt/Plan - Assessment Assessment: Failure to thrive, dehydration, diabetes, hypertension, BPH, CAD, cardiac arrhythmia, hypercholesterolemia, moderate protein calorie malnutrition, poor p.o. intake. chronic stroke - Plan Plan: hospice eval encourage patient to eat and drink supportive care continue current plan of care Nutritional Asmnt/Malnutr-PDOC - Dietary Evaluation Malnutrition Findings (Please click <Entered> for more info): Nutritional Asmnt/Malnutrition Start: 09/04/18 15: 11 Text: Status: Active Freq: Protocol: Document 09/04/18 15:11 DIAMOND (Rec: 09/04/18 15:20 DIAMOND [id number]) Nutritional Asmnt/Malnutrition Patient General Information Nutritional Screening Moderate Risk Diagnosis Dehydration, Generalized weakness, Agitation Pertinent Medical Hx/Surgical Hx HTN, DM, CAD, Dyslipidemia ( hyperlipidemia), Arthritis, BPH Subjective Information A 83 years old male was admitted from SNF d/t Dehydration, Generalized weakness and Agitation. Pt is currently on [facility] diet providing 1967 Kcal and 94 g protein. Per chart, Pt refused to eat, medications and accucheck. Per chart, PO intake 0% for all meals on . Current Diet Order/ Nutrition Support [facility] Pertinent Medications Maalox, D50W, Glutose 40%, D5- 0.9%ns, Glucagen, INS-SS Pertinent Labs 09/02 POC Glu 144 09/03 NA 135, POTASS 2.9, Glu 144, POC Glu 127, 135, 153 Nutritional Hx/Data Height 5 ft 8 in Height (Calculated Centimeters) 172.7 Current Weight (lbs) 164 lb Weight (Calculated Kilograms) 74.4 Weight (Calculated Grams) 31599.1 [place] Body Weight 68.4 kg Body Mass Index (BMI) 24.9 Weight Status Approriate GI Symptoms GI Symptoms None Last BM 09/03 Difficult in: None Skin Integrity/Comment: Argelia 11, Skin Intact Current %PO Negligible < 25% Estimated Nutritional Goals BEE in Kcals: Using Current wt Calories/Kcals/Kg 25-30 Kcal/kg Kcals Calculated 0435-8698 Kcal Protein: Using Current wt Protein g/k-1.2g/kg Protein Calculated 74-90 g Fluid: ml 0947-0194 ml (1ml/kcal) Nutritional Problem 2. Problem Problem Altered nutrition related lab result Etiology medical condition Signs/Symptoms: lab result Glucose 144 and POC glucose ranging 127-153 1. Problem Problem Inadequate oral intake Etiology possible low appetite and pt refuse to eat Signs/Symptoms: PO intake 0% for all meals on 09/03 Malnutrition Related to Morbid Obesity Malnutrition related to morbid obesity No Intervention/Recommendation Comments 1. Continue with [facility] diet as ordered. 2. RN to encourage PO intake. 3. Monitor PO intake, wt, labs and skin integrity 4. F/U as HR in 1-2 days Expected Outcomes/Goals Expected Outcomes/Goals 1. Pt to meet at least 75% of nutritional needs via nutrition support with tolerance 2. Wt stability, skin to remain intact, labs to approach WNL.
--- NOTE | 2018-09-06 22:53 | Consultation ---
DATE OF CONSULTATION: 09/05/2018 REQUESTING PHYSICIAN: Kina Amaro M.D. TYPE OF CONSULTATION: Psychology. CONSULTING PSYCHOLOGIST: Anthony Rogel, Ph.D. REASON FOR CONSULTATION: The patient is an 83-year-old male who is being referred for a psychology consultation in order to evaluate the patient for depression and make recommendations based on his mental health disposition. The patient has been refusing all treatment. The interest and concern is whether there are any psychological factors or barriers that are possibly complicating the patient's optimal participation in his treatment. HISTORY OF PRESENT ILLNESS: The following is by the assessment methods of review of medical records, including history and physical, nursing notes, MD progress notes, staff consultation and interview with the patient in his room. The patient is an 83-year-old male. The patient's , Fiona, is involved in his care. The patient was admitted from a psychiatric hospital, i.e., [facility], due to a history of dementia with possible current psychosis, depression and failure to thrive. The patient was admitted on the medical floor. Staff reports the patient has been refusing medications, Accu- Cheks, and IV insertion. The patient has been refusing to eat and drink. The patient has multiple medical problems and had been getting severely dehydrated. The patient's medical problems include diabetes, hypertension, hypercholesterolemia, BPH, CAD and cardiac arrhythmia. The patient's has been here and has spoken with the staff regarding the patient to be evaluated for hospice. The patient's status has been changed to DNR according to the staff. PAST PSYCHIATRIC HISTORY: The patient was previously admitted to [facility] and was transferred here for medical stabilization. The patient has been a resident of [facility]. According to the record, the patient is under the care of a psychiatrist and psychologist at his placement. PAST MEDICAL HISTORY: Please see history and physical by Dr. Goyal. SUBSTANCE ABUSE HISTORY: The patient did not answer these questions. There is nothing in the record to indicate past use or consumption of alcohol, tobacco , or any drug use. BRIEF PSYCHOSOCIAL HISTORY: According to record review, the patient is and the patient's , Fiona, is very supportive and involved in his care. The patient did not answer any questions about occupational or educational history or roman catholic affiliation. The patient did not answer questions about current legal problems or any history of abuse. The patient did not answer questions about other family, friends or others involved in his care. MENTAL STATUS EXAMINATION: The patient is arousable only by light touch. The patient is somnolent. The patient stated that he wanted to be "left alone" . The patient did not participate in the rest of the clinical interview so a Mini Mental Status Exam (MMSE) was performed. The following is by review of the medical record, staff report and direct observation. The patient appears to be his stated age. The patient is somnolent and barely arousable and only by light touch. Speech is slow and soft. The patient's mood is irritable. Affect is blunted. Eye contact is poor. The patient stated again, that he wanted to be "left alone". The patient did not answer the question about experiencing any suicidal ideation, plan or intention or any wish to . The patient has poor insight into his illness. The patient did not answer questions about thought content, i.e., delusions or hallucinations. The patient's behavior has been refusing all treatment, i.e., medications, food, water or any other medical protocols. The patient's impulse control is limited. Staff reports there was an order for Haldol, if the patient becomes agitated; however, the record indicates there has been no need to use IM Haldol. The patient is totally withdrawn and isolative. Unable to assess the following: The patient did not participate in the interpretation of proverbs. The patient did not participate in the memory assessment. The patient did not answer any questions about milestones or family history or personal history. Unable to assess concentration. Sensorium is alert and oriented to self and place (in a hospital ). Insight is impaired. Judgment is impaired. The patient's capacity to make a reasonable decision about his care is of major concern. DIAGNOSTIC IMPRESSION: AXIS I: Provisional diagnosis of Major Depressive Disorder, recurrent, severe. AXIS II: deferred AXIS III: per Dr. Goyal. TREATMENT PLAN: The patient is declining any psychological services or any psychotherapeutic interventions to assist the patient in accepting treatment. The patient is refusing all attempts towards his care. The patient is also refusing to eat or drink and has pulled out the IV lines in the past. This provider discussed with the nurse on staff, Junior, that a consultation with the attending physician, Dr. Goyal, and attending psychiatrist, Dr. Amaro is forthcoming regarding the patient's care. The patient's status has been changed to DNR, according to the patient's . Recommendations for evaluation for hospice were also requested by the patient's . There is no followup indicated for psychology services as a standard treatment protocol and approach. The patient was, of course, encouraged to comply with the treatment. The patient requested to be left alone and continues to refuse all care. Thank you, Dr. Amaro and Dr. Goyal, for this consult and the opportunity to participate in this patient's care. JOB# [id number] DALIA
[2018-09-07] MEDS: INSULIN LISPRO SLIDING SCALE 100 UNITS/ML UNIT SUBQ SCH ×4 (06:31→21:36)
[2018-09-07] MEDS: Haloperidol Lactate Oral sol. 2 mg/mL Udc PO SCH ×2 (09:11→16:26)
[2018-09-07] MEDS: Aspirin 81mg Chewable Tab PO SCH (09:11)
--- NOTE | 2018-09-07 12:21 | Internal Medicine Prog Note ---
Internal Medicine Subjective - Subjective Patient seen and examined:: with staff, chart reviewed Patient is:: awake, in bed, talking, confused Patient Complaints of:: congestion, unable to sleep Per staff patient has:: poor appetite, poor oral intake, noncompliant, refusing care, refusing labs Internal Medicine Objective - Results Result Diagrams: 09/03/18 05:35 09/03/18 05:35 Recent Labs: Laboratory Last Values WBC 8.9 Th/cmm (4.8-10.8) 09/03/18 05:35 RBC 4.87 Mil/cmm (3.80-5.80) 09/03/18 05:35 Hgb 13.9 gm/dL (12-16) 09/03/18 05:35 Hct 41.7 % (41.0-60) 09/03/18 05:35 MCV 85.6 fl (80-99) 09/03/18 05:35 MCH 28.5 pg (27.0-31.0) 09/03/18 05:35 MCHC Differential 33.4 pg (28.0-36.0) 09/03/18 05:35 RDW 15.7 % (11.5-20.0) 09/03/18 05:35 Plt Count 176 Th/cmm (150-400) 09/03/18 05:35 MPV 10.3 fl 09/03/18 05:35 Add Manual Diff 09/01/18 22:45 Neutrophils % 69.2 % (40.0-80.0) 09/03/18 05:35 Lymphocytes % 22.5 % (20.0-50.0) 09/03/18 05:35 Monocytes % 3.5 % (2.0-10.0) 09/03/18 05:35 Eosinophils % 3.8 % (0.0-5.0) 09/03/18 05:35 Basophils % 1.0 % (0.0-2.0) 09/03/18 05:35 PT 10.6 SECONDS (9.5-11.5) 09/01/18 22:45 INR 1.02 (0.5-1.4) 09/01/18 22:45 PTT (Actin FS) 31.9 SECONDS (26.0-38.0) 09/01/18 22:45 Sodium 135 mEq/L (136-145) L 09/03/18 05:35 Potassium 2.9 mEq/L (3.5-5.1) L* 09/03/18 05:35 Chloride 103 mEq/L (98-107) 09/03/18 05:35 Carbon Dioxide 20.9 mEq/L (21.0-31.0) L 09/03/18 05:35 Anion Gap 14.0 (7.0-16.0) 09/03/18 05:35 BUN 7 mg/dL (7-25) 09/03/18 05:35 Creatinine 1.0 mg/dL (0.7-1.3) 09/03/18 05:35 Est GFR ( Amer) TNP 09/03/18 05:35 Est GFR (Non-Af Amer) TNP 09/03/18 05:35 BUN/Creatinine Ratio 7.0 09/03/18 05:35 Glucose 130 mg/dL (70-105) H 09/03/18 05:35 POC Glucose 153 MG/DL (70 - 105) H 09/03/18 20:21 Calcium 9.0 mg/dL (8.6-10.3) 09/03/18 05:35 Magnesium 2.1 mg/dL (1.9-2.7) 09/03/18 05:35 Total Bilirubin 0.7 mg/dL (0.3-1.0) 09/01/18 22:45 AST 12 U/L (13-39) L 09/01/18 22:45 ALT 25 U/L (7-52) 09/01/18 22:45 Alkaline Phosphatase 75 U/L (34-104) 09/01/18 22:45 Ammonia 35 umol/L (16-53) 09/02/18 06:00 Creatine Kinase 27 U/L (30-223) L 09/01/18 22:45 Troponin I 0.02 ng/mL (0.01-0.05) 09/01/18 22:45 B-Natriuretic Peptide 71.7 pg/mL (5.0-100.0) 09/03/18 05:35 Total Protein 7.2 gm/dL (6.0-8.3) 09/01/18 22:45 Albumin 3.4 gm/dL (4.2-5.5) L 09/01/18 22:45 Globulin 3.8 gm/dL 09/01/18 22:45 Albumin/Globulin Ratio 0.9 (1.0-1.8) L 09/01/18 22:45 Lipase 21 U/L (11-82) 09/01/18 22:45 Vitamin B12 709 pg/mL (232-1245) 09/02/18 06:00 Folic Acid 7.5 ng/mL (>3.0) 09/02/18 06:00 TSH 4.40 uIU/ml (0.34-5.60) 09/02/18 06:00 - Physical Exam Vitals and I&O: Vital Signs Temp 98.2 F 09/07/18 04:00 Pulse 78 09/07/18 07:45 Resp 20 09/07/18 08:00 BP 125/77 09/07/18 04:00 Pulse Ox 96 09/07/18 07:45 Intake & Output 09/06/18 09/07/18 09/07/18 18:59 06:59 18:59 Intake Total 100 500 Balance 100 500 Weight (lbs) 74.389 kg 74.389 kg Intake: Oral 100 500 Other: # Voids 2 3 # Bowel Movements 0 Weight Source Bedscale Bedscale Active Medications: Current Medications Acetaminophen (Tylenol) 650 mg PO Q4H PRN PRN Reason: Pain Or Fever above 101 Stop: 10/31/18 23:43 Last Admin: 09/07/18 00:41 Dose: 650 mg Al Hydrox/Mg Hydrox/Simethicone (Maalox) 30 ml PO Q6H PRN PRN Reason: Dyspepsia Stop: 10/31/18 23:43 Albuterol Sulfate (Albuterol 2.5mg/3ml Neb Ud) 2.5 mg HHN Q2HRT PRN PRN Reason: Shortness of Breath or Wheeze Stop: 10/31/18 23:43 Amlodipine Besylate (Norvasc) 10 mg PO DAILY [facility] Stop: 11/01/18 08:59 Last Admin: 09/07/18 09:11 Dose: Not Given Aspirin (Aspirin Chewable) 81 mg PO DAILY [facility] Stop: 11/01/18 08:59 Last Admin: 09/07/18 09:11 Dose: Not Given Dextrose (D50w) 50 ml IVP PRN PRN PRN Reason: Blood Glucose less than 70 Stop: 10/31/18 23:45 Dextrose (Glutose 40%) 18.75 gm PO PRN PRN PRN Reason: Blood Glucose less than 70 Stop: 10/31/18 23:45 Donepezil HCl (Aricept) 5 mg PO HS [facility] Stop: 11/01/18 20:59 Last Admin: 09/06/18 20:41 Dose: Not Given Glucagon (Glucagen) 1 mg IM PRN PRN PRN Reason: Blood Glucose less than 70 Stop: 10/31/18 23:45 Guaifenesin (Robitussin) 200 mg PO Q4HR PRN PRN Reason: Cough or Congestion Stop: 10/31/18 23:43 Haloperidol Lactate (Haldol) 2 mg PO BID [facility]; Protocol Stop: 11/04/18 13:59 Last Admin: 09/07/18 09:11 Dose: Not Given Haloperidol Lactate (Haldol) 1 mg IM BID PRN PRN Reason: Agitation Stop: 11/04/18 14:33 Dextrose/Sodium Chloride (D5-0.9%Ns) 1,000 mls @ 80 mls/hr IV .[id number] [facility] Stop: 11/01/18 01:59 Last Admin: 09/04/18 21:17 Dose: 80 mls/hr Insulin Human Lispro (Humalog Insulin Sliding Scale) 0 units SUBQ ACHS [facility]; Protocol Stop: 11/01/18 07:29 Last Admin: 09/07/18 11:27 Dose: Not Given Ipratropium [place] (Atrovent Neb 0.5mg/2.5ml) 0.5 mg HHN Q2HRT PRN PRN Reason: Shortness of Breath or Wheeze Stop: 10/31/18 23:43 Lorazepam (Ativan) 0.5 mg PO Q8HR PRN; Protocol PRN Reason: Agitation Stop: 10/31/18 23:46 Megestrol Acetate (Megace) 400 mg PO BID [facility]; Protocol Stop: 11/01/18 16:59 Last Admin: 09/07/18 09:11 Dose: Not Given Mupirocin (Bactroban Oint) 1 appl NS BID [facility] Stop: 09/08/18 09:01 Last Admin: 09/07/18 09:12 Dose: Not Given Nitroglycerin (Nitrostat) 0.4 mg SL Q5MIN PRN PRN Reason: Chest Pain Stop: 10/31/18 23:43 Ondansetron HCl (Zofran) 4 mg IV Q8H PRN PRN Reason: Nausea / Vomiting Stop: 10/31/18 23:43 Propranolol HCl (Inderal) 10 mg PO BID [facility] Stop: 11/01/18 08:59 Last Admin: 09/07/18 09:12 Dose: Not Given Simvastatin (Zocor) 20 mg PO DAILY [facility]; Protocol Stop: 11/01/18 08:59 Last Admin: 09/07/18 09:12 Dose: Not Given Tamsulosin HCl (Flomax) 0.8 mg PO DAILY [facility] Stop: 11/01/18 08:59 Last Admin: 09/07/18 09:12 Dose: Not Given General: demented, thin HEENT: NC/AT, PERRLA, EOMI Neck: Supple, No JVD Lungs: CTAB Cardiovascular: RRR, Normal S1, Normal S2, with murmur Abdomen: soft, thin, globular, positive bowel sound Extremities: excoriation, contracture Neurological: no change, disorganized Internal Medicine Assmt/Plan - Assessment Assessment: ASSESSMENT: Failure to thrive, dehydration, diabetes, hypertension, BPH, CAD, cardiac arrhythmia, hypercholesterolemia, moderate protein calorie malnutrition, poor p.o. intake. chronic stroke - Plan Plan: PLAN: We will continue the patient on gentle IV hydration. Monitor for any signs and symptoms of fluid overload. We will titrate the patient on diabetic medications. Hold Lantus. Continue with insulin sliding scale. We will perform a head CT ___to assess africana studies professor status of_ the patient. We will try to get information from the spouse as well, supposedly she is coming to have a conversation. Discussed with nursing staff as well. pt's requesting hospice Nutritional Asmnt/Malnutr-PDOC - Dietary Evaluation Malnutrition Findings (Please click <Entered> for more info): Nutritional Asmnt/Malnutrition Start: 09/04/18 15: 11 Text: Status: Active Freq: Protocol: Document 09/04/18 15:11 MBONUS (Rec: 09/04/18 15:20 MBONUS [email or web address]) Nutritional Asmnt/Malnutrition Patient General Information Nutritional Screening Moderate Risk Diagnosis Dehydration, Generalized weakness, Agitation Pertinent Medical Hx/Surgical Hx HTN, DM, CAD, Dyslipidemia ( hyperlipidemia), Arthritis, BPH Subjective Information A 83 years old male was admitted from SNF d/t Dehydration, Generalized weakness and Agitation. Pt is currently on [facility] diet providing 1967 Kcal and 94 g protein. Per chart, Pt refused to eat, medications and accucheck. Per chart, PO intake 0% for all meals on . Current Diet Order/ Nutrition Support [facility] Pertinent Medications Maalox, D50W, Glutose 40%, D5- 0.9%ns, Glucagen, INS-SS Pertinent Labs 09/02 POC Glu 144 09/03 NA 135, POTASS 2.9, Glu 144, POC Glu 127, 135, 153 Nutritional Hx/Data Height 1.73 m Height (Calculated Centimeters) 172.7 Current Weight (lbs) 74.389 kg Weight (Calculated Kilograms) 74.4 Weight (Calculated Grams) 92910.1 [place] Body Weight 68.4 kg Body Mass Index (BMI) 24.9 Weight Status Approriate GI Symptoms GI Symptoms None Last BM 09/03 Difficult in: None Skin Integrity/Comment: Argelia 11, Skin Intact Current %PO Negligible < 25% Estimated Nutritional Goals BEE in Kcals: Using Current wt Calories/Kcals/Kg 25-30 Kcal/kg Kcals Calculated 4262-4389 Kcal Protein: Using Current wt Protein g/k-1.2g/kg Protein Calculated 74-90 g Fluid: ml 8783-6009 ml (1ml/kcal) Nutritional Problem 2. Problem Problem Altered nutrition related lab result Etiology medical condition Signs/Symptoms: lab result Glucose 144 and POC glucose ranging 127-153 1. Problem Problem Inadequate oral intake Etiology possible low appetite and pt refuse to eat Signs/Symptoms: PO intake 0% for all meals on 09/03 Malnutrition Related to Morbid Obesity Malnutrition related to morbid obesity No Intervention/Recommendation Comments 1. Continue with [facility] diet as ordered. 2. RN to encourage PO intake. 3. Monitor PO intake, wt, labs and skin integrity 4. F/U as HR in 1-2 days Expected Outcomes/Goals Expected Outcomes/Goals 1. Pt to meet at least 75% of nutritional needs via nutrition support with tolerance 2. Wt stability, skin to remain intact, labs to approach WNL.
[2018-09-08] MEDS: INSULIN LISPRO SLIDING SCALE 100 UNITS/ML UNIT SUBQ SCH ×3 (09:04→16:34)
[2018-09-08] MEDS: Aspirin 81mg Chewable Tab PO SCH (09:11)
[2018-09-08] MEDS: Haloperidol Lactate Oral sol. 2 mg/mL Udc PO SCH ×2 (09:11→16:34)
--- NOTE | 2018-09-08 12:33 | Internal Medicine Prog Note ---
Internal Medicine Subjective - Subjective Patient seen and examined:: with staff, chart reviewed Patient is:: asleep, in bed, talking, confused, stares blankly Patient Complaints of:: congestion, unable to sleep Per staff patient has:: poor appetite, poor oral intake, noncompliant, refusing care, refusing labs Internal Medicine Objective - Results Result Diagrams: 09/03/18 05:35 09/03/18 05:35 Recent Labs: Laboratory Last Values WBC 8.9 Th/cmm (4.8-10.8) 09/03/18 05:35 RBC 4.87 Mil/cmm (3.80-5.80) 09/03/18 05:35 Hgb 13.9 gm/dL (12-16) 09/03/18 05:35 Hct 41.7 % (41.0-60) 09/03/18 05:35 MCV 85.6 fl (80-99) 09/03/18 05:35 MCH 28.5 pg (27.0-31.0) 09/03/18 05:35 MCHC Differential 33.4 pg (28.0-36.0) 09/03/18 05:35 RDW 15.7 % (11.5-20.0) 09/03/18 05:35 Plt Count 176 Th/cmm (150-400) 09/03/18 05:35 MPV 10.3 fl 09/03/18 05:35 Add Manual Diff 09/01/18 22:45 Neutrophils % 69.2 % (40.0-80.0) 09/03/18 05:35 Lymphocytes % 22.5 % (20.0-50.0) 09/03/18 05:35 Monocytes % 3.5 % (2.0-10.0) 09/03/18 05:35 Eosinophils % 3.8 % (0.0-5.0) 09/03/18 05:35 Basophils % 1.0 % (0.0-2.0) 09/03/18 05:35 PT 10.6 SECONDS (9.5-11.5) 09/01/18 22:45 INR 1.02 (0.5-1.4) 09/01/18 22:45 PTT (Actin FS) 31.9 SECONDS (26.0-38.0) 09/01/18 22:45 Sodium 135 mEq/L (136-145) L 09/03/18 05:35 Potassium 2.9 mEq/L (3.5-5.1) L* 09/03/18 05:35 Chloride 103 mEq/L (98-107) 09/03/18 05:35 Carbon Dioxide 20.9 mEq/L (21.0-31.0) L 09/03/18 05:35 Anion Gap 14.0 (7.0-16.0) 09/03/18 05:35 BUN 7 mg/dL (7-25) 09/03/18 05:35 Creatinine 1.0 mg/dL (0.7-1.3) 09/03/18 05:35 Est GFR ( Amer) TNP 09/03/18 05:35 Est GFR (Non-Af Amer) TNP 09/03/18 05:35 BUN/Creatinine Ratio 7.0 09/03/18 05:35 Glucose 130 mg/dL (70-105) H 09/03/18 05:35 POC Glucose 153 MG/DL (70 - 105) H 09/03/18 20:21 Calcium 9.0 mg/dL (8.6-10.3) 09/03/18 05:35 Magnesium 2.1 mg/dL (1.9-2.7) 09/03/18 05:35 Total Bilirubin 0.7 mg/dL (0.3-1.0) 09/01/18 22:45 AST 12 U/L (13-39) L 09/01/18 22:45 ALT 25 U/L (7-52) 09/01/18 22:45 Alkaline Phosphatase 75 U/L (34-104) 09/01/18 22:45 Ammonia 35 umol/L (16-53) 09/02/18 06:00 Creatine Kinase 27 U/L (30-223) L 09/01/18 22:45 Troponin I 0.02 ng/mL (0.01-0.05) 09/01/18 22:45 B-Natriuretic Peptide 71.7 pg/mL (5.0-100.0) 09/03/18 05:35 Total Protein 7.2 gm/dL (6.0-8.3) 09/01/18 22:45 Albumin 3.4 gm/dL (4.2-5.5) L 09/01/18 22:45 Globulin 3.8 gm/dL 09/01/18 22:45 Albumin/Globulin Ratio 0.9 (1.0-1.8) L 09/01/18 22:45 Lipase 21 U/L (11-82) 09/01/18 22:45 Vitamin B12 709 pg/mL (232-1245) 09/02/18 06:00 Folic Acid 7.5 ng/mL (>3.0) 09/02/18 06:00 TSH 4.40 uIU/ml (0.34-5.60) 09/02/18 06:00 - Physical Exam Vitals and I&O: Vital Signs Temp 97.6 F 09/08/18 08:00 Pulse 71 09/08/18 09:11 Resp 20 09/08/18 08:22 BP 115/79 09/08/18 09:11 Pulse Ox 96 09/08/18 08:14 Intake & Output 09/07/18 09/08/18 09/08/18 18:59 06:59 18:59 Intake Total 480 240 Balance 480 240 Weight (lbs) 74.389 kg 73.936 kg Intake: Oral 480 240 Other: # Voids 1 2 # Bowel Movements 0 Weight Source Bedscale Bedscale Active Medications: Current Medications Acetaminophen (Tylenol) 650 mg PO Q4H PRN PRN Reason: Pain Or Fever above 101 Stop: 10/31/18 23:43 Last Admin: 09/07/18 00:41 Dose: 650 mg Al Hydrox/Mg Hydrox/Simethicone (Maalox) 30 ml PO Q6H PRN PRN Reason: Dyspepsia Stop: 10/31/18 23:43 Albuterol Sulfate (Albuterol 2.5mg/3ml Neb Ud) 2.5 mg HHN Q2HRT PRN PRN Reason: Shortness of Breath or Wheeze Stop: 10/31/18 23:43 Amlodipine Besylate (Norvasc) 10 mg PO DAILY KIM Stop: 11/01/18 08:59 Last Admin: 09/08/18 09:10 Dose: Not Given Aspirin (Aspirin Chewable) 81 mg PO DAILY KIM Stop: 11/01/18 08:59 Last Admin: 09/08/18 09:11 Dose: Not Given Dextrose (D50w) 50 ml IVP PRN PRN PRN Reason: Blood Glucose less than 70 Stop: 10/31/18 23:45 Dextrose (Glutose 40%) 18.75 gm PO PRN PRN PRN Reason: Blood Glucose less than 70 Stop: 10/31/18 23:45 Donepezil HCl (Aricept) 5 mg PO HS [facility] Stop: 11/01/18 20:59 Last Admin: 09/07/18 21:36 Dose: Not Given Glucagon (Glucagen) 1 mg IM PRN PRN PRN Reason: Blood Glucose less than 70 Stop: 10/31/18 23:45 Guaifenesin (Robitussin) 200 mg PO Q4HR PRN PRN Reason: Cough or Congestion Stop: 10/31/18 23:43 Haloperidol Lactate (Haldol) 2 mg PO BID [facility]; Protocol Stop: 11/04/18 13:59 Last Admin: 09/08/18 09:11 Dose: Not Given Haloperidol Lactate (Haldol) 1 mg IM BID PRN PRN Reason: Agitation Stop: 11/04/18 14:33 Dextrose/Sodium Chloride (D5-0.9%Ns) 1,000 mls @ 80 mls/hr IV .[id number] [facility] Stop: 11/01/18 01:59 Last Admin: 09/04/18 21:17 Dose: 80 mls/hr Insulin Human Lispro (Humalog Insulin Sliding Scale) 0 units SUBQ ACHS [facility]; Protocol Stop: 11/01/18 07:29 Last Admin: 09/08/18 11:07 Dose: Not Given Ipratropium [place] (Atrovent Neb 0.5mg/2.5ml) 0.5 mg HHN Q2HRT PRN PRN Reason: Shortness of Breath or Wheeze Stop: 10/31/18 23:43 Lorazepam (Ativan) 0.5 mg PO Q8HR PRN; Protocol PRN Reason: Agitation Stop: 10/31/18 23:46 Megestrol Acetate (Megace) 400 mg PO BID [facility]; Protocol Stop: 11/01/18 16:59 Last Admin: 09/08/18 09:11 Dose: Not Given Nitroglycerin (Nitrostat) 0.4 mg SL Q5MIN PRN PRN Reason: Chest Pain Stop: 08/17/19 23:43 Ondansetron HCl (Zofran) 4 mg IV Q8H PRN PRN Reason: Nausea / Vomiting Stop: 10/31/18 23:43 Propranolol HCl (Inderal) 10 mg PO BID [facility] Stop: 11/01/18 08:59 Last Admin: 09/08/18 09:11 Dose: Not Given Simvastatin (Zocor) 20 mg PO DAILY [facility]; Protocol Stop: 11/01/18 08:59 Last Admin: 09/08/18 09:11 Dose: Not Given Tamsulosin HCl (Flomax) 0.8 mg PO DAILY [facility] Stop: 11/01/18 08:59 Last Admin: 09/08/18 09:11 Dose: Not Given General: demented, thin HEENT: NC/AT, PERRLA, EOMI Neck: Supple, No JVD Lungs: CTAB Cardiovascular: RRR, Normal S1, Normal S2, with murmur Abdomen: soft, thin, globular, positive bowel sound Extremities: excoriation, contracture Neurological: no change, disorganized Internal Medicine Assmt/Plan - Assessment Assessment: ASSESSMENT: Failure to thrive, dehydration, diabetes, hypertension, BPH, CAD, cardiac arrhythmia, hypercholesterolemia, moderate protein calorie malnutrition, poor p.o. intake. chronic stroke - Plan Plan: PLAN: We will continue the patient on gentle IV hydration. Monitor for any signs and symptoms of fluid overload. We will titrate the patient on diabetic medications. Hold Lantus. Continue with insulin sliding scale. 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 We will try to get information from the spouse as well, supposedly she is coming to have a conversation. Discussed with nursing staff as well. pt's requesting hospice pending Nutritional Asmnt/Malnutr-PDOC - Dietary Evaluation Malnutrition Findings (Please click <Entered> for more info): Nutritional Asmnt/Malnutrition Start: 09/04/18 15: 11 Text: Status: Active Freq: Protocol: Document 09/04/18 15:11 [email or web address] (Rec: 09/04/18 15:20 [email or web address] [id number]) Nutritional Asmnt/Malnutrition Patient General Information Nutritional Screening Moderate Risk Diagnosis Dehydration, Generalized weakness, Agitation Pertinent Medical Hx/Surgical Hx HTN, DM, CAD, Dyslipidemia ( hyperlipidemia), Arthritis, BPH Subjective Information A 83 years old male was admitted from SNF d/t Dehydration, Generalized weakness and Agitation. Pt is currently on [facility] diet providing 1967 Kcal and 94 g protein. Per chart, Pt refused to eat, medications and accucheck. Per chart, PO intake 0% for all meals on . Current Diet Order/ Nutrition Support [facility] Pertinent Medications Maalox, D50W, Glutose 40%, D5- 0.9%ns, Glucagen, INS-SS Pertinent Labs 09/02 POC Glu 144 09/03 NA 135, POTASS 2.9, Glu 144, POC Glu 127, 135, 153 Nutritional Hx/Data Height 1.73 m Height (Calculated Centimeters) 172.7 Current Weight (lbs) 74.389 kg Weight (Calculated Kilograms) 74.4 Weight (Calculated Grams) 27585.1 [place] Body Weight 68.4 kg Body Mass Index (BMI) 24.9 Weight Status Approriate GI Symptoms GI Symptoms None Last BM 09/03 Difficult in: None Skin Integrity/Comment: Argelia 11, Skin Intact Current %PO Negligible < 25% Estimated Nutritional Goals BEE in Kcals: Using Current wt Calories/Kcals/Kg 25-30 Kcal/kg Kcals Calculated 2686-6438 Kcal Protein: Using Current wt Protein g/k-1.2g/kg Protein Calculated 74-90 g Fluid: ml 3486-1648 ml (1ml/kcal) Nutritional Problem 2. Problem Problem Altered nutrition related lab result Etiology medical condition Signs/Symptoms: lab result Glucose 144 and POC glucose ranging 127-153 1. Problem Problem Inadequate oral intake Etiology possible low appetite and pt refuse to eat Signs/Symptoms: PO intake 0% for all meals on 09/03 Malnutrition Related to Morbid Obesity Malnutrition related to morbid obesity No Intervention/Recommendation Comments 1. Continue with [facility] diet as ordered. 2. RN to encourage PO intake. 3. Monitor PO intake, wt, labs and skin integrity 4. F/U as HR in 1-2 days Expected Outcomes/Goals Expected Outcomes/Goals 1. Pt to meet at least 75% of nutritional needs via nutrition support with tolerance 2. Wt stability, skin to remain intact, labs to approach WNL.
--- NOTE | 2018-09-10 15:30 | Discharge Summary ---
DATE OF DISCHARGE: 09/08/2018 FINAL DIAGNOSES: 1. Failure to thrive. 2. Diabetes. 3. Dehydration. 4. Hypertension. 5. Benign prostatic hyperplasia. 6. Coronary artery disease. 7. Cardiac arrhythmia. 8. Hypercholesterolemia. 9. Moderate protein calorie malnutrition. 10. Dementia. HISTORY: This is an 83-year-old male with history of diabetes, hypertension, hypercholesterolemia, BPH, CAD, cardiac arrhythmia, admitted from acute psychiatric hospital secondary to not eating or drinking. The patient evaluated for further management. PHYSICAL EXAMINATION: VITAL SIGNS: Blood pressure 115/79, respiration 20, pulse 71, temperature 97.6. GENERAL: Elderly male who appears his stated age. NECK: Supple. No mass. LUNGS: Equal breath sounds with few rhonchi. HEART: Regular rate and rhythm with systolic ejection murmur. ABDOMEN: Soft, globular. EXTREMITIES: Positive excoriation, atrophy, contractures. NEUROLOGIC: Limited. HOSPITAL COURSE: The patient was admitted to medical floor, continued on oxygen and bronchodilator treatments and IV hydration. The patient was evaluated by Per Dr. Bryan for Psychiatry and psychotropic medication was adjusted. The patient made some improvement, but the patient was persistent with p.o. intake including diet and nutrition and medication. decided to drive the patient to hospice. The patient accepted. CONDITION ON DISCHARGE: Fair. OVERALL PROGNOSIS: Poor. DISCHARGE INSTRUCTIONS: The patient will be admitted to hospice service ____ less than [address] he is going at this point. [facility]# [id number]
== END 2018-09-08 17:58 | DRG 640 ==
LOC: ER 21:28 → MSI 23:45
PROVIDERS: ADMIT Internal Medicine; ATTEND Internal Medicine
DX: E86.0 Dehydration (principal); R53.2 Functional quadriplegia; E44.0 Moderate protein-calorie malnutrition; F03.91 Unspecified dementia, unspecified severity, with behavioral disturbance; F33.9 Major depressive disorder, recurrent, unspecified; E87.1 Hypo-osmolality and hyponatremia; E87.6 Hypokalemia; R62.7 Adult failure to thrive; E11.9 Type 2 diabetes mellitus without complications; I10 Essential (primary) hypertension; N40.0 Benign prostatic hyperplasia without lower urinary tract symptoms; F29 Unspecified psychosis not due to a substance or known physiological condition; I49.9 Cardiac arrhythmia, unspecified; E78.5 Hyperlipidemia, unspecified; M19.90 Unspecified osteoarthritis, unspecified site; I25.10 Atherosclerotic heart disease of native coronary artery without angina pectoris; Z68.24 Body mass index [BMI] 24.0-24.9, adult; Z86.73 Personal history of transient ischemic attack (TIA), and cerebral infarction without residual deficits; Z79.4 Long term (current) use of insulin
CPT/HCPCS: 36415-UA; 70450-TC; 71045-TC; 80048-TC; 80053-TC; 82140-TC; 82550-TC; 82607-90; 82746-90; 82948-90; 83690-TC; 83735-TC; 83880-TC; 84443-TC; 84484-TC; 85025-TC; 85610-TC; 93005; 94760; J1200; J1630; J2001; J2060; J3475; J3480; J7030; J7042; Z7610